=== PATIENT | male | born 1950 | race Caucasian/White ===

== ENCOUNTER 2019-09-18 13:05 | Outpatient (CLI) | payer MEDICARE, MEDICAID, SELFPAY | END 2019-09-18 13:06 | disposition home or self-care (01) | LOC: WOUND 13:07 | PROVIDERS: Family Provider Internal Medicine; PCP Internal Medicine; Visit Provider Nurse Practitioner Family | DX: I96 Gangrene, not elsewhere classified (principal); L89.212 Pressure ulcer of right hip, stage 2 | CPT/HCPCS: G0463 ==

== ENCOUNTER 2019-09-25 10:43 | Outpatient (CLI) | payer MEDICARE, MEDICAID, SELFPAY | END 2019-09-25 10:44 | disposition home or self-care (01) | LOC: WOUND 10:44 | PROVIDERS: Family Provider Internal Medicine; PCP Internal Medicine; Visit Provider Nurse Practitioner Family | DX: Z09 Encounter for follow-up examination after completed treatment for conditions other than malignant neoplasm (principal) | CPT/HCPCS: 99212 ==

== ENCOUNTER → 2019-10-10 14:50 | Outpatient (BNVA) | payer MEDICARE, MEDICAID, SELFPAY | PROVIDERS: Family Provider Internal Medicine; PCP Internal Medicine; Visit Provider Specialist | DX: F31.9 Bipolar disorder, unspecified (principal) | CPT/HCPCS: 99213 ==

== ENCOUNTER → 2020-07-24 11:30 | Outpatient (BNVA) | payer MEDICARE, MEDICAID, SELFPAY | PROVIDERS: Family Provider Internal Medicine; PCP Internal Medicine; Visit Provider Specialist | DX: F31.9 Bipolar disorder, unspecified (principal); F03.90 Unspecified dementia, unspecified severity, without behavioral disturbance, psychotic disturbance, mood disturbance, and anxiety; R26.81 Unsteadiness on feet; F17.210 Nicotine dependence, cigarettes, uncomplicated | CPT/HCPCS: 99214 ==

== ENCOUNTER → 2021-01-28 08:51 | Outpatient (BNVA) | payer MEDICARE, MEDICAID, SELFPAY | PROVIDERS: Family Provider Internal Medicine; PCP Internal Medicine; Visit Provider Specialist | DX: G31.83 Neurocognitive disorder with Lewy bodies (principal); F02.80 Dementia in other diseases classified elsewhere, unspecified severity, without behavioral disturbance, psychotic disturbance, mood disturbance, and anxiety; F31.30 Bipolar disorder, current episode depressed, mild or moderate severity, unspecified; J44.9 Chronic obstructive pulmonary disease, unspecified; F17.200 Nicotine dependence, unspecified, uncomplicated | CPT/HCPCS: 99214 ==

== ENCOUNTER → 2021-04-22 09:27 | Outpatient (BNVA) | payer MEDICARE, MEDICAID, SELFPAY | PROVIDERS: Family Provider Internal Medicine; PCP Internal Medicine; Visit Provider Specialist | DX: G31.83 Neurocognitive disorder with Lewy bodies (principal); F02.80 Dementia in other diseases classified elsewhere, unspecified severity, without behavioral disturbance, psychotic disturbance, mood disturbance, and anxiety; F31.30 Bipolar disorder, current episode depressed, mild or moderate severity, unspecified; F25.9 Schizoaffective disorder, unspecified; J44.9 Chronic obstructive pulmonary disease, unspecified; F17.200 Nicotine dependence, unspecified, uncomplicated | CPT/HCPCS: 99214 ==

== ENCOUNTER → 2021-07-22 10:27 | Outpatient (BNVA) | payer MEDICARE, MEDICAID, SELFPAY | PROVIDERS: Family Provider Internal Medicine; PCP Internal Medicine; Visit Provider Specialist | DX: G31.83 Neurocognitive disorder with Lewy bodies (principal); F02.80 Dementia in other diseases classified elsewhere, unspecified severity, without behavioral disturbance, psychotic disturbance, mood disturbance, and anxiety; J44.9 Chronic obstructive pulmonary disease, unspecified; F31.30 Bipolar disorder, current episode depressed, mild or moderate severity, unspecified; F17.200 Nicotine dependence, unspecified, uncomplicated | CPT/HCPCS: 99213; 99214 ==

== ENCOUNTER → 2021-10-28 13:07 | Outpatient (BNVA) | payer MEDICARE, MEDICAID, SELFPAY | PROVIDERS: Family Provider Internal Medicine; PCP Internal Medicine; Visit Provider Specialist | DX: G31.83 Neurocognitive disorder with Lewy bodies (principal); F02.80 Dementia in other diseases classified elsewhere, unspecified severity, without behavioral disturbance, psychotic disturbance, mood disturbance, and anxiety; F31.30 Bipolar disorder, current episode depressed, mild or moderate severity, unspecified; F25.9 Schizoaffective disorder, unspecified | CPT/HCPCS: 99213; 99214 ==

== ENCOUNTER 2022-04-16 12:21 | Outpatient (CLI) | payer MEDICARE, MEDICAID, SELFPAY ==
--- NOTE | 2022-04-16 12:30 | CT_ITS ---
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 TECHNIQUE: Axial imaging performed from the apices to 1 cm below the costophrenic angles. Coronal and sagittal reformats are submitted with axial MIP series. All CT scans at [facility] use at least one of these dose optimization techniques: automated exposure control; mA and/or kV adjustment per patient size (includes targeted exams where dose is matched to clinical indication); or iterativ e reconstruction. DLP: 78.99 mGy.cm DIvol: Mean CTDIvol: 1.60 (mGy) COMPARISON: None available. Diagnostic quality: Limited. Lung Nodules: Severe centrilobular emphysema. There are patchy nodular opacifications throughout the RIGHT upper and RIGHT lower lobe. Tubular areas of consolidation in the RIGHT lower lobe probably rep resenting bronchitis and secretions in the bronchi. 4 mm pleural-based nodule LEFT upper lobe. Heart: Normal size heart. Scattered coronary artery calcification. Other findings: Stomach is intrathoracic. Splenic flexure also extends above the diaphragm. CT/CT lung screening [id number] IMPRESSION: Limited quality evaluation due to severe chronic emphysema and kyphosis. LUNG-RADS: 4AS-Probably Suspicious with Significant Findings FOLLOW UP: Chest CT with or without contrast OTHER FINDINGS (S MODIFIER): Intrathoracic stomach. Splenic flexure is intratho racic also. Recommend short-term follow-up chest CT with IV contrast.
== END 2022-04-16 12:22 | disposition home or self-care (01) ==
LOC: RAD 12:23
PROVIDERS: Visit Provider Family Medicine
DX: Z12.2 Encounter for screening for malignant neoplasm of respiratory organs (principal); F17.218 Nicotine dependence, cigarettes, with other nicotine-induced disorders
CPT/HCPCS: 71271

== ENCOUNTER → 2022-04-29 13:20 | Outpatient (BNVA) | payer MEDICARE, MEDICAID, SELFPAY | PROVIDERS: PCP Family Medicine; Visit Provider Specialist | DX: F31.31 Bipolar disorder, current episode depressed, mild (principal); G31.83 Neurocognitive disorder with Lewy bodies; F02.B18 Dementia in other diseases classified elsewhere, moderate, with other behavioral disturbance; J41.0 Simple chronic bronchitis | CPT/HCPCS: 99213 ==

== ENCOUNTER 2022-05-27 15:24 | Outpatient (CLI) | payer MEDICARE, MEDICAID, SELFPAY ==
--- NOTE | 2022-05-27 15:30 | CT_ITS ---
WS: [id number] CT CHEST WITH INTRAVENOUS CONTRAST HISTORY: Pulmonary nodule on Lung screening. TECHNIQUE: Contiguous 5 mm axial imaging performed on the thorax. Coronal and sagittal reformats are submitted. All CT scans at [facility] use at least one of these dose optimization techniques: automated exposure control; mA and/or kV adjustment per patient size (includes targeted exams where dose is matched to clinical indication); or iterative reconstruction. CONTRAST: Omnipaque 350; 95 mL IV. DLP: 224.14 mGy.cm COMPARISON: CT lung screening 04/16/2022 Lungs and central airway: Marked centrilobular emphysema. Pleural-based 5 mm nodule LEFT upper lobe i s unchanged. Patchy consolidations at the RIGHT lung base is similar to the prior study. Tubular in a ppearance and probably bronchial thickening with internal secretions and developing bronchiectasis. N o progression. There are a few mild scattered linear opacifications in the RIGHT upper and lower lobe . Pleura: Normal. No pleural effusion. Heart and pericardium: Normal size heart. Mediastinum and marshall: No mediastinal or hilar adenopathy. Vessels: Mild atherosclerosis aorta. Chest wall and lower neck: No soft tissue masses. Upper abdomen: Large portion of the stomach is intrathoracic. Osseous structures: No destructive process. CT/CT chest w con* [id number] IMPRESSION: 1. Severe emphysema. 2. No significant change in appearance of the lungs since 04/16/2022. No increa se in size of the pleural-based nodule LEFT upper lobe. Recommend serial chest CT follow-up evaluation. 3. Intrathoracic stomach.
[2022-05-27 16:17] LABS: Blood Urea Nitrogen 17 mg/dL (8-23)
[2022-05-27] MEDS: iohexol 350 mg/mL 500 mL Btl (per mL) IV (16:18)
== END 2022-05-27 15:25 | disposition home or self-care (01) ==
PROVIDERS: PCP Family Medicine; Visit Provider Family Medicine
DX: R91.1 Solitary pulmonary nodule (principal)
CPT/HCPCS: 71260; 82565; 84520; Q9967

== ENCOUNTER → 2022-07-15 09:22 | Outpatient (BNVA) | payer MEDICARE, MEDICAID, SELFPAY | PROVIDERS: PCP Family Medicine; Visit Provider Internal Medicine Pulmonary Disease | DX: F17.210 Nicotine dependence, cigarettes, uncomplicated (principal); R91.1 Solitary pulmonary nodule; G31.83 Neurocognitive disorder with Lewy bodies; F02.B18 Dementia in other diseases classified elsewhere, moderate, with other behavioral disturbance; J41.0 Simple chronic bronchitis; Z71.6 Tobacco abuse counseling; K44.9 Diaphragmatic hernia without obstruction or gangrene | CPT/HCPCS: 99204 ==

== ENCOUNTER → 2022-07-29 10:16 | Outpatient (BNVA) | payer MEDICARE, MEDICAID, SELFPAY | PROVIDERS: PCP Family Medicine; Visit Provider Specialist | DX: G31.83 Neurocognitive disorder with Lewy bodies (principal); G45.9 Transient cerebral ischemic attack, unspecified; F02.B18 Dementia in other diseases classified elsewhere, moderate, with other behavioral disturbance; J41.0 Simple chronic bronchitis; F31.31 Bipolar disorder, current episode depressed, mild | CPT/HCPCS: 99215 ==

== ENCOUNTER 2022-07-29 11:58 | Outpatient (CLI) | payer MEDICARE, MEDICAID, SELFPAY ==
--- NOTE | 2022-07-29 12:00 | CT_ITS ---
WS: [id number] CT HEAD TECHNIQUE: Noncontrast CT of the head obtained from the skullbase to the vertex. CLINICAL INFORMATION: R29.90 - Unspecified symptoms and signs involving the ner... COMPARISON: CT head February 17, 2009 DLP: 1164.[address] scans at [facility] use at least one of these dose optimization techniques: automated e xposure control; mA and/or kV adjustment per patient size (includes targeted exams where dose is matc hed to clinical indication); or iterative reconstruction. FINDINGS: No evidence of intracranial hemorrhage or mass effect. Ventricular system and basal cisterns are joyce nt. Moderate small vessel changes with moderate parenchymal volume loss worse in the frontal lobes. N o extra-axial fluid collections. No evidence of mass or mass effect. Tiny chronic lacunar infarct LEF T basal ganglia. Vascular calcification. Paranasal sinuses and mastoid air cells are well aerated. .Normal visualized soft tissues. CT/CT head wo con* [id number] IMPRESSION: 1. No evidence of intracranial hemorrhage or mass effect. 2. Moderate small vessel changes. Moderate parenchymal volume loss worse in th e frontal lobes. This is progressed since 2008. 3. Vascular calcification. 4. No acute intracranial findings.
[2022-07-29 13:41] LABS: Basophils # 0.1 10^3/uL (0.0-0.1); Eosinophils % 0.2 %; Hematocrit 41.4 % (42.0-52.0); Hemoglobin 13.3 g/dL (11.7-16.6); Lymphocytes # 1.4 10^3/uL (0.8-4.8); Lymphocytes % 22.3 %; Mean Corpuscular HGB Conc 32.1 g/dL (30.0-36.0); Mean Corpuscular Volume 99.5 fl (80-94); Mean Platelet Volume 8.6 fL (7.4-10.4); Monocytes # 0.5 10^3/uL (0.2-0.9); Neutrophils # 4.26 10^3/uL (1.8-7.7); Neutrophils % 68.3 %; Nucleated Red Blood Cells % 0 %; Platelet Count 230 10^3/cmm (130-400); Red Blood Count 4.16 10^6/uL (4.1-5.3); Red Cell Distribution Width 13.1 % (12.1-15.1); White Blood Count 6.2 10^3/uL (4.0-10.0)
[2022-07-29 13:49] LABS: Lithium 0.9 mmol/L (0.6-1.2)
[2022-07-29 14:02] LABS: Alanine Aminotransferase 13 U/L (0-41); Albumin Level 3.9 g/dL (3.5-5.2); Alkaline Phosphatase 98 U/L (40-130); Anion Gap 10.6 (5-19); Aspartate Amino Transferase 17 U/L (0-40); Blood Urea Nitrogen 20 mg/dL (8-23); Carbon Dioxide 27 mmol/L (22-29); Chloride 107 mmol/L (98-107); Globulin 2.6 g/dL (1.3-4.6); Glucose 72 mg/dL (65-115); Osmolality Calculated 291 mOsm/kg (285-295); Potassium 4.6 mmol/L (3.5-5.1); Sodium 140 mmol/L (136-145); Thyroid Stimulating Hormone 3.11 uIU/mL (0.27-4.20); Total Bilirubin 0.4 mg/dL (0.15-1.2); Total Protein 6.5 g/dL (6.6-8.7)
== END 2022-07-29 11:59 | disposition home or self-care (01) ==
LOC: RAD 11:58
PROVIDERS: PCP Family Medicine; Visit Provider Specialist
DX: R29.90 Unspecified symptoms and signs involving the nervous system (principal); R19.7 Diarrhea, unspecified; G31.83 Neurocognitive disorder with Lewy bodies; F02.80 Dementia in other diseases classified elsewhere, unspecified severity, without behavioral disturbance, psychotic disturbance, mood disturbance, and anxiety; R20.0 Anesthesia of skin; T14.8XXA Other injury of unspecified body region, initial encounter; I63.9 Cerebral infarction, unspecified; G45.9 Transient cerebral ischemic attack, unspecified; F02.B18 Dementia in other diseases classified elsewhere, moderate, with other behavioral disturbance; J41.0 Simple chronic bronchitis; F31.31 Bipolar disorder, current episode depressed, mild; X58.XXXA Exposure to other specified factors, initial encounter
CPT/HCPCS: 36415; 70450; 80053; 80178; 84443; 85025; 99215

== ENCOUNTER 2022-08-05 07:22 | Outpatient (CLI) | payer MEDICARE, MEDICAID, SELFPAY | END 2022-08-05 07:23 | disposition home or self-care (01) | LOC: RT 07:25 | PROVIDERS: PCP Family Medicine; Visit Provider Internal Medicine Pulmonary Disease | DX: J44.9 Chronic obstructive pulmonary disease, unspecified (principal) | CPT/HCPCS: 94618; 99204 ==

== ENCOUNTER → 2022-10-29 10:51 | Outpatient (BNVA) | payer MEDICARE, MEDICAID, SELFPAY | PROVIDERS: PCP Family Medicine; Visit Provider Internal Medicine Pulmonary Disease | DX: J41.0 Simple chronic bronchitis (principal); R91.1 Solitary pulmonary nodule; G31.83 Neurocognitive disorder with Lewy bodies; F02.B18 Dementia in other diseases classified elsewhere, moderate, with other behavioral disturbance; Z71.6 Tobacco abuse counseling; K44.9 Diaphragmatic hernia without obstruction or gangrene; F17.210 Nicotine dependence, cigarettes, uncomplicated | CPT/HCPCS: 99214 ==

== ENCOUNTER 2022-11-12 07:28 | Outpatient (CLI) | payer MEDICARE, MEDICAID, SELFPAY ==
--- NOTE | 2022-11-12 07:45 | CT_ITS ---
WS: [id number] CT chest wo con [id number] HISTORY: nodule f/u TECHNIQUE: Axial imaging performed through the thorax. Coronal and sagittal reformats are submitted. All CT scans at [facility] use at least one of these dose optimization techniques: automated exposure control; mA and/or kV adjustment per patient size (includes targeted exams where dose is mat ched to clinical indication); or iterative reconstruction. CONTRAST: None DLP: 192.65 mGy.cm COMPARISON: 04/16/2022, 05/27/2022 Lungs and central airway: Chronic emphysema. No interval change pleural-based nodule anterior LEFT up per lobe. Mild hazy attenuation in the lower lung field in part exacerbated by breathing motion artif act. Irregular shaped opacification at the RIGHT lung base along the diaphragmatic surface has slight ly improved since the study of 04/16/2022. Residual nodule measures 12 mm. Pleura: Normal. No pleural effusion. Heart and pericardium: Normal size heart. Mediastinum and marshall: No adenopathy. Vessels: Mild atherosclerosis aorta. Normal size pulmonary artery. Chest wall and lower neck: No soft tissue masses. Upper abdomen: There is a large intrathoracic stomach. Also noted on the prior study. High riding spl een. Portion of the splenic fracture is in the lower thorax. Osseous structures: No destructive process. CT/CT chest wo con [id number] IMPRESSION: 1. No interval change in the 5 mm pleural-based nodule LEFT upper lobe since 1 06/17/2021. 2. Subtle opacification at the RIGHT lung base has slightly improved since 04/16/2022. Consider additional [address] follow-up. 3. Intrathoracic stomach and intrathoracic splenic flexure.
== END 2022-11-12 07:29 | disposition home or self-care (01) ==
LOC: RAD 07:29
PROVIDERS: PCP Family Medicine; Visit Provider Internal Medicine Pulmonary Disease
DX: R91.1 Solitary pulmonary nodule (principal); J44.9 Chronic obstructive pulmonary disease, unspecified
CPT/HCPCS: 71250

== ENCOUNTER → 2023-01-05 14:54 | Outpatient (BNVA) | payer MEDICARE, MEDICAID, SELFPAY | PROVIDERS: PCP Family Medicine; Visit Provider Specialist | DX: R41.3 Other amnesia (principal); G31.83 Neurocognitive disorder with Lewy bodies; F02.B18 Dementia in other diseases classified elsewhere, moderate, with other behavioral disturbance; R26.9 Unspecified abnormalities of gait and mobility | CPT/HCPCS: 99214 ==

== ENCOUNTER → 2023-04-23 09:01 | Outpatient (BNVA) | payer MEDICARE, MEDICAID, SELFPAY | PROVIDERS: PCP Family Medicine; Visit Provider Internal Medicine Pulmonary Disease | DX: R91.1 Solitary pulmonary nodule (principal); F02.B18 Dementia in other diseases classified elsewhere, moderate, with other behavioral disturbance; G31.83 Neurocognitive disorder with Lewy bodies; J41.0 Simple chronic bronchitis; Z71.6 Tobacco abuse counseling; K44.9 Diaphragmatic hernia without obstruction or gangrene; F17.210 Nicotine dependence, cigarettes, uncomplicated | CPT/HCPCS: 99214 ==

== ENCOUNTER 2023-05-20 12:58 | Outpatient (CLI) | payer MEDICARE, MEDICAID, SELFPAY ==
--- NOTE | 2023-05-20 13:30 | CT_ITS ---
WS: [id number] CT CHEST TECHNIQUE: Noncontrast CT of the chest with coronal and sagittal reformatted images. CLINICAL INFORMATION: follow up on rigth lower lobe opacity COMPARISON: CT 11/12/2022 DLP: 72.[address] scans at [facility] use at least one of these dose optimization techniques: automated e xposure control; mA and/or kV adjustment per patient size (includes targeted exams where dose is matc hed to clinical indication); or iterative reconstruction. FINDINGS: Stable 5 mm pleural-based nodule LEFT upper lobe. Stable irregular nodule RIGHT lower lobe measuring 13 mm appears stable. Bibasilar atelectasis. Calcified granuloma LEFT lower lobe. Mild thor acic curve. Mild thoracic kyphosis. Moderate to advanced chronic emphysematous changes. Bibasilar atelectasis. Intrathoracic stomach. Aor tic calcification. Coronary calcification. No mediastinal or hilar lymphadenopathy. IMPRESSION: 1. No significant change compared to previous. 2. Stable 5 mm pleural-based nodule LEFT upper lobe. This is unchanged since 04/16/2022. 3. RIGHT lower lobe irregular nodule measuring 13 mm is stable. Recommend 12-month follow-up. 4. Intrathoracic stomach is stable
== END 2023-05-20 12:59 | disposition home or self-care (01) ==
LOC: RAD 12:59
PROVIDERS: PCP Family Medicine; Visit Provider Internal Medicine Pulmonary Disease
DX: R91.8 Other nonspecific abnormal finding of lung field (principal)
CPT/HCPCS: 71250

== ENCOUNTER → 2023-07-27 09:53 | Outpatient (BNVA) | payer MEDICARE, MEDICAID, SELFPAY | PROVIDERS: PCP Family Medicine; Referring Provider Specialist; Visit Provider Specialist | DX: R29.90 Unspecified symptoms and signs involving the nervous system (principal); G31.83 Neurocognitive disorder with Lewy bodies; F02.B18 Dementia in other diseases classified elsewhere, moderate, with other behavioral disturbance; F31.31 Bipolar disorder, current episode depressed, mild; R26.9 Unspecified abnormalities of gait and mobility | CPT/HCPCS: 99214 ==

== ENCOUNTER 2023-08-03 14:47 | Observation (INO) | payer MEDICARE, MEDICAID, SELFPAY ==
[2023-08-03 14:55] VITALS: BP 132/86; PULSE 79; RESP 16; TEMP 37.1; O2SAT 97; BMI 17.9
--- NOTE | 2023-08-03 15:03 | CTR_ITS ---
PROCEDURE INFORMATION: Exam: CT Head Without Contrast Exam date and time: 08/03/2023 3:18 PM Age: 73 years old Clinical indication: Altered mental status/memory loss; Additional info: AMS TECHNIQUE: Imaging protocol: Computed tomography of the head without contrast. Radiation optimization: All CT scans at this facility use at least one of these dose optimization techniques: automated exposure control; mA and/or kV adjustment per patient size (includes targeted exams where dose is matched to clinical indication); or iterative reconstruction. COMPARISON: CT head wo con* [id number] 07/29/2022 12:09 PM RADIATION DOSE METRICS: Total DLP (mGy-cm): 1395.58 FINDINGS: Brain: Sequela of mild chronic microvascular ischemic changes. Soto-white differentiation is otherwise maintained. No evidence of intra-axial or extra-axial hemorrhage. No mass effect or midline shift. Basilar cisterns are patent. Cerebral ventricles: No hydrocephalus. Paranasal sinuses: The visualized paranasal sinuses are well aerated. Mastoid air cells: The visualized mastoids and middle ears are clear. Bones/joints: The visualized calvarium and bony orbits are intact. Soft tissues: No gross soft tissue abnormality. CT/CT head wo con* [id number] IMPRESSION: 1. No acute intracranial abnormality.
--- NOTE | 2023-08-03 15:04 | XR_ITS ---
WS: [email or web address] Exam: XR chest 1V portable [id number] Date/Time of Exam: 08/03/2023 3:06 PM Reason For Exam: dyspnea/cough Comparison 11/16/2018. There is a mild interstitial infiltrate in the RIGHT lower lung zone. Developing pneumonia is not exc luded. Remaining lung leavitt are clear. Mild cardiac enlargement. Large hiatal hernia unchanged. The mediastinum is normal in contour. No pleural effusions or pneumothorax. Regional bony elements are in tact. Mild dextroscoliosis of the T-spine. IMPRESSION: 1. Mild interstitial infiltrate in the mid and lower RIGHT lung. Developing pneumonia is not excluded . 2. Mild cardiac enlargement unchanged. Stable appearing large hiatal hernia.
--- NOTE | 2023-08-03 15:20 | ED_ITS ---
HPI - Weakness 2 General: Chief complaint: Weakness Stated complaint: confusion, dizzy, Time Seen by Provider: 08/03/23 15:03 Source: patient and family Mode of arrival: ambulatory History of Present Illness: 73-year-old male presents to the emergen cy room from urgent care. Increasing weakness and confusion not at baseline. Patient is alert to time place and person. He denies chest pain or abdominal pain he is moderately dizzy. Report of gradually getting weaker some of this is thought to be secondary to his dementia. MD Complaint: generalized weakness Onset (ago): hour(s) Relieving factors: none Exacerbating factors: none Associated symptoms: Denies chest pain, chills, confusion, melena, decreased appetite, diaphoresis, dysuria, easy bruising, fever(s), headache(s), myalgias, nausea, rash, short of breath, syncope or vomiting Review of Systems 2 Const: Denies: fever(s), chills or diaphoresis Card: Denies: chest pain or syncope Resp: Reports: dyspnea and non-productive cough GI: Denies: abdominal pain, nausea, vomiting or melena : Denies: dysuria, urinary frequency or urinary urgency Musc: Denies: neck pain or back pain Skin/Breast: Denies: rash Neuro: Denies: headache(s) or confusion Aleks/Lymph: Denies: easy bruising PFSH ED 2 PFSH: Medical History Dementia COPD (chronic obstructive pulmonary disease) GERD (gastroesophageal reflux disease) Schizo affective schizophrenia Surgical History History of hip surgery Social History Smoking and tobacco/nicotine status: current every day tobacco/nicotine user cigarettes Packs smoked per day: 1 Years cigarettes smoked: 61 [ Other cigarette details: 10-12 cigarettes per day] Alcohol intake: former Physical Exam 2 Const: GENERAL APPEARANCE: cooperative and comfortable O RIENTATION/CONSCIOUSNESS: Yes awake, Yes oriented to person, Yes oriented to place and Yes oriented to time HENMT: COMMON NORMALS: normocephalic, atraumatic and hearing grossly normal bilaterally HEAD & SCALP: normocephalic and atraumatic Resp: COMMON NORMALS: normal respiratory effort, No retractions and No use of accessory muscles AUSCULTATION: rhonchi (Right base) and wheezes Cardio: COMMON NORMALS: regular rate, regular rhythm and No murmurs present (Cardio) RATE: regular rate RHYTHM: regular rhythm GI: COMMON NORMALS: Soft to palpation and No hepatosplenomegaly present A USCULTATION: Yes normoactive bowel sounds PALPATION: Yes Soft to palpation, No Tenderness to palpation present (GI), No Guarding due to palpation present (GI) and Yes No hepatosplenomegaly present Extremity: COMMON NORMALS: normal to inspection, capillary refill normal, no clubbing, cyanosis or edema, no calf tenderness and no pedal edema Neuro: SENSORIUM/ORIENTATION: Yes oriented to person, Yes oriented to place and Yes oriented to time Skin: COMMON NORMALS: no rashes or lesions noted GENERAL SKIN EXAM: no rashes or lesions noted Course 2 Vital Signs: Vital signs: Vital Signs Temperature 97.6 F 08/04/23 13:38 Pulse Rate 72 08/04/23 13:38 Respiratory Rate 17 08/04/23 13:38 Blood Pressure 113/69 08/04/23 13:38 Pulse Oximetry 92 08/04/23 13:38 Oxygen Delivery Me thod Room Air 08/04/23 08:00 MDM - Weakness Medical Decision Making Weakness mildly elevated CPK and developing right lower lobe pneumonia. Placed on observation discussed with hospitalist orders written Medical Records I reviewed the patient's medical records. Lab Data I reviewed the patient's lab results. 08/04/23 04:18 08/04/23 04:[address] 08/03/23 15:03 IMPRESSION: 1. No acute intracranial abnormality. Laboratory Results WBC 7.13 10^3/uL (3.29-11.43) 08/03/23 15:32 RBC 4.08 10^6/uL (3.85-5.65) 08/03/23 15:32 Hgb 13.40 g/dL (11.27-16.99) 08/03/23 15:32 Hct 41.2 % (37-53) 08/03/23 15:32 MCV 101.0 fl (82-101) 08/03/23 15:32 MCH 32.8 pg (27-33) 08/03/23 15:32 MCHC 32.5 g/dL (30-55) 08/03/23 15:32 RDW 13.1 % (12.1-15.1) 08/03/23 15:32 Plt Count 239 10^3/cmm (157-399) 08/03/23 15:32 MPV 8.5 fL (7.4-10.4) 08/03/23 15:32 Neut % (Auto) 76.0 % 08/03/23 15:32 Lymph % (Auto) 13.5 % 08/03/23 15:32 Bartholomew % (Auto) 9.3 % 08/03/23 15:32 Eos % (Auto) 0.3 % 08/03/23 15: Baso % (Auto) 0.6 % 08/03/23 15:32 Neut # (Auto) 5.43 10^3/uL (1.8-7.7) 08/03/23 15:32 Lymph # (Auto) 1.0 10^3/uL (0.8-4.8) 08/03/23 15:32 Bartholomew # (Auto) 0.7 10^3/uL (0.2-0.9) 08/03/23 15:32 Eos # (Auto) 0.0 10^3/uL (0.0-0.8) 08/03/23 15: Baso # (Auto) 0.0 10^3/uL (0.0-0.1) 08/03/23 15:32 Nucleated RBC % (auto) 0 % 08/03/23 15: Nucleated RBCs # 0.0 /100WBC 08/03/23 15:32 Sodium 140 mmol/L (136-145) 08/03/23 15:32 Potassium 3.8 mmol/L (3.5-5.1) 08/03/23 15:32 Chloride 106 mmol/L (98-107) 08/03/23 15:32 Carbon Dioxide 22 mmol/L (22-29) 08/03/23 15:32 Anion Gap 15.8 (5-19) 08/03/23 15:32 BUN 20 mg/dL (8-23) 08/03/23 15:32 Creatinine 1.1 mg/dL (0.7-1.2) 08/03/23 15:32 GFR Calculation Not Reportable 08/03/23 15:32 Glucose 82 mg/dL (65-115) 08/03/23 15:32 Calculated Osmolality 292 mOsm/kg (285-295) 08/03/23 15:32 Lactic Acid 1.3 mmol/L (0.5-2.2) 08/03/23 15:32 Calcium 9.0 mg/dL (8.5-10.5) 08/03/23 15:32 Total Bilirubin 0.3 mg/dL (0.15-1.2) 08/03/23 15:32 AST 27 U/L (0-40) 08/03/23 15:32 ALT 19 U/L (0-41) 08/03/23 15:32 Alkaline Phosphatase 109 U/L (40-130) 08/03/23 15:32 Creatine Kinase 739 U/L (39-308) H* 08/03/23 15:32 Troponin T Baseline 34 ng/L (0-15) H 08/03/23 15:32 Troponin T 120 Minute 36.94 ng/L (0-15) H 08/03/23 17:25 Delta Troponin T 2.94 ABS# (0-10) 08/03/23 17:25 Total Protein 6.8 g/dL (6.6-8.7) 08/03/23 15:32 Albumin 4.0 g/dL (3.5-5.2) 08/03/23 15:32 Globulin 2.8 g/dL (1.3-4.6) 08/03/23 15:32 Coronavirus 229E (PCR) Not detected (NOT DETECT) 08/03/23 18:13 Influenza Type A Ag negative (Negative) 08/03/23 18:13 Influenza Type B Ag negative (Negative) 08/03/23 18:13 SARS-CoV-2 (PCR) Not detected (NOT DETECT) 08/03/23 18:13 All radiology interpretation(s) finalized by discharge Discharge Plan Discharge Patient Disposition: Admitted As Inpatient Admit Provider: Villa Moreno Clinical Impression: Rhabdomyolysis, Diarrhea, Generalized weakness, Pneumonia COPD (chronic obstructive pulmonary disease) Qualifiers: COPD type: chronic bronchitis Chronic bronchitis type: simple Qualified Code(s): J41.0 - Simple chronic bronchitis Condition: Stable Discharge Diet: Usual diet Discharge Activity: Increase activity as tolerated Coding Level of Care Code ED Pulmonology Technician for Leodan Taveras
--- NOTE | 2023-08-03 15:34 | ECG_ITS ---
[facility] Test Date: 2023-08-03 Pat Name: Erlin Yadav Department: Room: Gender: Male Ekg Monitor: : 1950 Requested By: Aamir Arzola Order Number: [id number] Reading MD: Judy Mckenzie M.D. Measurements Intervals [place] Rate: 67 P: 40 TX: 196 QRS: 14 QRSD: 100 T: 75 QT: 413 QTc: 438 Interpretive Statements SINUS RHYTHM WITH OCCASIONAL VENTRICULAR PREMATURE COMPLEXES WITH OCCASIONAL SUPRAVENTRICULAR PREMATURE COMPLEXES NONSPECIFIC T-WAVE ABNORMALITY Compared to ECG 11/16/2018 17:20:31 Ventricular premature complex(es) now present First degree AV block no longer present T-wave abnormality still present Electronically Signed On 08-04-2023 23:46:10 CDT by Judy Mckenzie M.D. [id number]
[2023-08-03 15:48] LABS: Basophils % 0.6 %; Eosinophils % 0.3 %; Hematocrit 41.2 % (37-53); Lymphocytes % 13.5 %; Mean Corpuscular HGB Conc 32.5 g/dL (30-55); Mean Corpuscular Hemoglobin 32.8 pg (27-33); Mean Platelet Volume 8.5 fL (7.4-10.4); Monocytes # 0.7 10^3/uL (0.2-0.9); Monocytes % 9.3 %; Neutrophils # 5.43 10^3/uL (1.8-7.7); Nucleated Red Blood Cells % 0 %; Platelet Count 239 10^3/cmm (157-399); Red Blood Count 4.08 10^6/uL (3.85-5.65); Red Cell Distribution Width 13.1 % (12.1-15.1); White Blood Count 7.13 10^3/uL (3.29-11.43)
[2023-08-03 16:06] LABS: Lactic Sepsis W/Reflex 1.3 mmol/L (0.5-2.2)
[2023-08-03 16:07] LABS: Alanine Aminotransferase 19 U/L (0-41); Alkaline Phosphatase 109 U/L (40-130); Anion Gap 15.8 (5-19); Aspartate Amino Transferase 27 U/L (0-40); Blood Urea Nitrogen 20 mg/dL (8-23); Carbon Dioxide 22 mmol/L (22-29); Chloride 106 mmol/L (98-107); Creatinine Clr Calc Pharmacy 50.6286; Globulin 2.8 g/dL (1.3-4.6); Glucose 82 mg/dL (65-115); Osmolality Calculated 292 mOsm/kg (285-295); Potassium 3.8 mmol/L (3.5-5.1); Sodium 140 mmol/L (136-145); Total Bilirubin 0.3 mg/dL (0.15-1.2); Total Protein 6.8 g/dL (6.6-8.7)
[2023-08-03 16:11] LABS: Troponin(5th) Baseline 34 ng/L (0-15)
[2023-08-03 16:19] LABS: Creatine Phosphokinase 739 U/L (39-308)
[2023-08-03 16:21] VITALS: BP 109/58; PULSE 72; RESP 17; O2SAT 92
--- NOTE | 2023-08-03 17:23 | ECG_ITS ---
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 Measurements Intervals [place] Rate: 70 P: 64 IL: 234 QRS: 20 QRSD: 105 T: 74 QT: 405 QTc: 439 Interpretive Statements SINUS RHYTHM WITH FIRST DEGREE AV BLOCK WITH OCCASIONAL VENTRICULAR PREMATURE COMPLEXES NONSPECIFIC T-WAVE ABNORMALITY Compared to ECG 08/03/2023 15:34:12 First degree AV block now present T-wave abnormality still present Electronically Signed On 08-05-2023 0:01:27 CDT by Judy Mckenzie M.D. [id number]
[2023-08-03 17:59] LABS: Troponin 5 2HR 36.94 ng/L (0-15); Troponin 5 2HR Delta 2.94 ABS# (0-10)
--- NOTE | 2023-08-03 18:02 | P.HP_ITS ---
Providers/Chief Complaint 2 Primary Care Provider: Alexander Perez DO Chief Complaint: confusion, dizzy, History of Present Illness Pleasant 73-year-old gentleman with dementia, care facility resident, usually oriented to place, recognizing some people, not oriented to date, has overall been gradually growing weaker, possibly secondary to dementia, but has been weaker still recently. Today had a witnessed fall, did not spend much time down. Has had diarrhea. In ER he is afebrile, without leukocytosis, unremarkable chemistry apart from CK elevation 739. He reportedly has been eating and drinking without change in appetite. No recent changes in his medications. Baseline troponin with mild elevation without increase at 2 hours. No intracranial abnormality on CT head. Chest x-ray with mild interstitial infiltrates in the mid and lower right lung possible developing pneumonia. Mild cardiac enlargement. Stable appearing large hiatal hernia. He himself is unable to provide history, but on review of systems denies any complaints. Review of Systems 2 Narrative: Weaker than usual, functional decline compared to usual. Const: Denies: fever(s), chills, body aches or malaise ENMT: Denies: throat pain Card: Denies: chest pain, edema, pre-syncope or dyspnea on exertion Resp: Denies: dyspnea, productive cough, change in phlegm color or hemoptysis GI: Reports: diarrhea; Denies: abdominal pain, nausea, vomiting, constipation, hematochezia or melena : Denies: flank pain, difficulty urinating, urinary frequency or hematuria Musc: Denies: back pain, joint swelling or joint redness Skin/Breast: Denies: rash or new lesions Neuro: Reports: other (Fall); Denies: headache(s) or confusion Medications/Allergies Home Medications Medication Instructions Recorded Confirmed Last Taken Type Kaopectate Liquid Vanilla 8oz See Rx Instructions .Route 05/26/22 08/03/23 Unknown Rx .COMPLEX #240 ea ketoconazole 2 % shampoo See Rx Instructions .Route 06/10/22 08/03/23 08/02/23 Rx .COMPLEX #120 mL Hospital bed #1 ea 02/06/23 08/03/23 Unknown Rx wheelchair #1 ea 02/06/23 08/03/23 Unknown Rx Cerave Moisturizing Cream #1 ea 06/29/23 08/03/23 Unknown Rx lorazepam 1 mg tablet 1 mg PO Q12H PRN agitation #30 tabs 07/26/23 08/03/23 Unknown Rx Cerave Moisturizing Cream 16oz See Rx Instructions .Route 08/03/23 08/03/23 08/03/23 History .COMPLEX PRN Dry Skin acetaminophen 500 mg tablet 1,000 mg PO Q4H PRN PAIN OR FEVER 08/03/23 08/03/23 Unknown History albuterol sulfate 90 mcg/actuation 1 puff inhalation Q4H PRN 08/03/23 08/03/23 Unknown History aerosol inhaler (Ventolin HFA) Shortness Of Breath alprazolam 1 mg tablet See Rx Instructions .Route .COMPLEX 08/03/23 08/03/23 08/03/23 History aluminum-mag hydroxide-simethicone 30 ml PO Q4H PRN Indigestion 08/03/23 08/03/23 Unknown History 200 mg-200 mg-20 mg/5 mL oral susp docusate sodium 100 mg capsule 100 mg PO BID 08/03/23 08/03/23 08/03/23 History galantamine 4 mg tablet 4 mg PO BID 08/03/23 08/03/23 08/03/23 History ibuprofen 800 mg tablet 800 mg PO Q8H PRN PAIN OR ELEVATED 08/03/23 08/03/23 Unknown History TEMP lithium carbonate 300 mg capsule 300 mg PO BID 08/03/23 08/03/23 08/03/23 History loratadine 10 mg tablet 10 mg PO DAILY PRN ALLERGIES 08/03/23 08/03/23 Unknown History multivitamin with folic acid 400 1 tab PO QAM 08/03/23 08/03/23 08/03/23 History mcg tablet (Daily-Carlos (with folic acid)) olanzapine 10 mg tablet 10 mg PO BEDTIME 08/03/23 08/03/23 08/02/23 History olanzapine 2.5 mg tablet 2.5 mg PO QAM 08/03/23 08/03/23 08/03/23 History omeprazole 20 mg capsule,delayed 20 mg PO BID 08/03/23 08/03/23 08/03/23 History release quetiapine 400 mg tablet 400 mg PO BID 08/03/23 08/03/23 08/03/23 History tamsulosin 0.4 mg capsule 0.4 mg PO QPM 08/03/23 08/03/23 08/02/23 History trazodone 100 mg tablet 100 mg PO BEDTIME 08/03/23 08/03/23 08/02/23 History triamcinolone acetonide 0.025 % 1 applic topical QAM 08/03/23 08/03/23 08/03/23 History topical cream umeclidinium 62.5 mcg/actuation 1 inh inhalation QAM 08/03/23 08/03/23 08/03/23 History blister powder for inhalation (Incruse Ellipta) venlafaxine 150 mg 150 mg PO QAM 08/03/23 08/03/23 08/03/23 History capsule,extended release 24 hr venlafaxine 75 mg capsule,extended 75 mg PO QAM 08/03/23 08/03/23 08/03/23 History release 24 hr Allergies Allergy/AdvReac Type Severity Reaction Status Date / Time azithromycin Allergy Unknown Unknown Verified 08/03/23 13:40 PFSH Acute 2 PFSH: Medical History (Updated 08/03/23 @ 18:43 by Villa Moreno MD) Dementia COPD (chronic obstructive pulmonary disease) GERD (gastroesophageal reflux disease) Schizo affective schizophrenia Surgical History History of hip surgery Social History Smoking and tobacco/nicotine status: current every day tobacco/nicotine user cigarettes Packs smoked per day: 1 Years cigarettes smoked: 61 [ Other cigarette details: 10-12 cigarettes per day] Alcohol intake: former Vitals/I&O/Wt Last Vital Signs Temp 98.7 F 08/03/23 14:55 Pulse 72 08/03/23 16:21 Resp 17 08/03/23 16:21 BP 109/58 08/03/23 16:21 Pulse Ox 92 08/03/23 16:21 O2 Del Method Room Air 08/03/23 14:55 Weight last 48 hrs Weight 61.689 kg Physical Exam 2 Narrative: Accompanied by caregiver Const: COMMON NORMALS: alert; negative for patient oriented x3 GENERAL APPEARANCE: cooperative and frail appearing ORIENTATION/CONSCIOUSNESS: Yes awake, Yes oriented to person and Yes oriented to place; not oriented to time HENMT: COMMON NORMALS: oropharynx normal Neck/C-Spine: COMMON NORMALS: no JVD Resp: AUSCULTATION: rhonchi right lower Cardio: COMMON NORMALS: no JVD, regular rhythm, S1 normal heart sound present, S2 normal heart sound present and No murmurs present (Cardio) RHYTHM: regular rhythm HEART SOUNDS: S1 normal heart sound present and S2 normal heart sound present GI: COMMON NORMALS: Normal to inspection, nondistended, normoactive bowel sounds present, Soft to palpation and non-tender PALPATION: Yes Soft to palpation Extremity: COMMON NORMALS: no joint enlargement and no pedal edema Neuro: COMMON NORMALS: patient oriented x3 and moves all extremities S ENSORIUM/ORIENTATION: Yes alert OTHER: No rigidity Skin: COMMON NORMALS: no rashes or lesions noted GENERAL SKIN EXAM: no rashes or lesions noted Data 08/03/23 15:32 08/03/23 15:32 Micro: Microbiology 08/03/23 17:30 Blood Culture - Preliminary Blood SPECIMEN COLLECTED 08/03/23 17:25 Blood Culture - Preliminary Blood SPECIMEN COLLECTED A&P Assessment and plan (1) Generalized weakness: Generally weak, some worsening of ADLs, also noted having some rhabdomyolysis, CK 739. Diarrhea. Had a fall earlier today. Reviewed vitals, CBC, CMP, CK, troponin baseline and 2 hours, head CT, chest x- ray. EKG on my interpretation with first-degree AV block, PVC, no signs of [place], some flattening of T waves in 1, aVL, laterally, pending cardiology read. Reviewed ER note, discussed with ER provider. Complete troponin EKG series. Check COVID PCR panel. Stool studies for diarrhea. Check TSH. Follow-up CK level. Some right lower lobe infiltrate, possibility of early pneumonia. Does have some rhonchi in the right lower lobe. Question of possible aspiration, although caregiver denies witnessing aspiration, although he does have to have a small spoon, soft and bite-size meals. Will treat for possible aspiration pneumonia, received Levaquin, continue. Assess with MBS. Aspiration precautions. Fall precautions. Up with assist. (2) Rhabdomyolysis: CK739, monitor blood myelitis. Reviewed medications, discussed with pharmacist. No obvious medication that should be causing rhabdomyolysis. No signs of NMS. Will follow-up CK level. Could be secondary to his weakness/controlled fall earlier today. Although could be secondary to some dehydration and diarrhea. His appetite has been good. He received fluid challenge in ER. (3) Diarrhea: Stool studies requested for C. difficile, Salmonella, Shigella, Campylobacter. COVID PCR viral panel. Hold docusate. Plan Dementia: Continue galantamine. Schizoaffective disorder: Check lithium level. Continue lithium, quetiapine, olanzapine, venlafaxine. COPD: Does have some rhonchi, warm, but not much cough, saturation 91% on room air. Will add scheduled DuoNebs. Continue as needed nebs. Goals of care discussion: Full code in case of cardiopulmonary arrest. Attestations 2 Medical Necessity Statement*: Place in observation for additional assessment and management of generalized weakness, rhabdomyolysis, suspected early pneumonia, possible aspiration pneumonia. and High MDM includes number and complexity of problems actively addressed during encounter and amount and/or complexity of data reviewed/ordered [ previous or external records, resulted lab(s)/test(s), ordered lab(s)/test(s), independent historian, independent test interpretation and other healthcare professional discussion] as documented Diagnoses Generalized weakness R53.1 Rhabdomyolysis M62.82 Diarrhea R19.7
[2023-08-03] MEDS: sodium chloride 0.9% 1,000 ML 999 ML IV (18:09)
[2023-08-03] MEDS: levofloxacin-dextrose 5 % 750 MG/150 ML PREMIX 100 MG IV (18:10)
[2023-08-03 18:44] VITALS: BP 136/86; PULSE 73; RESP 17; O2SAT 91
[2023-08-03 18:44] LABS: Influenza A by IFA negative (Negative); Influenza B by IFA negative (Negative)
[2023-08-03 19:35] VITALS: BP 139/75; PULSE 78; RESP 20; TEMP 37.8; O2SAT 94
[2023-08-03 19:38] VITALS: BP 136/86; PULSE 73; O2SAT 91
[2023-08-03 20:04] VITALS: PULSE 68; RESP 16; O2SAT 94
[2023-08-03] MEDS: ipratropium-albuterol 3 mL Neb INHALATION (20:04)
[2023-08-03] MEDS: sodium chloride 0.9% 1,000 ML 100 ML IV (20:05)
[2023-08-03 20:11] LABS: Adenovirus Not Detected (NOT DETECT); Chlamydia Pneumoniae Not Detected (NOT DETECT); Coronavirus 229E,HKU1,NL63,OC4 Not Detected (NOT DETECT); Human Metapneumovirus Not Detected (NOT DETECT); Human Rhinovirus/Enterovirus Not Detected (NOT DETECT); Influenza A Not Detected (NOT DETECT); Influenza A H1 Not Detected (NOT DETECT); Influenza A H1-2009 Not Detected (NOT DETECT); Influenza A H3 Not Detected (NOT DETECT); Influenza B Not Detected (NOT DETECT); Mycoplasma Pneumoniae Not Detected (NOT DETECT); Parainfluenza Virus Type 1 Not Detected (NOT DETECT); Parainfluenza Virus Type 2 Not Detected (NOT DETECT); Parainfluenza Virus Type 3 Detected (NOT DETECT); Parainfluenza Virus Type 4 Not Detected (NOT DETECT); Respiratory Syncytial Virus A Not Detected (NOT DETECT); Respiratory Syncytial Virus B Not Detected (NOT DETECT); SARS-COV-2 Not Detected (NOT DETECT)
[2023-08-03 20:17] LABS: Add Urine Microscopic? YES; Bilirubin Urine Neg (Negative); Blood Urine Neg (Negative); Glucose Urine UA Norm (Normal); Ketones Urine 1+ (Negative); Leukocyte Esterase Urine Negative (Negative); Nitrate Urine Negative (Negative); Protein Urine Trace (Negative); Urine Appearance Clear (CLEAR); Urine Color Yellow (Yellow); Urobilinogen Urine Norm (Negative); pH Urine 6 (5-7)
[2023-08-03 20:23] LABS: RBC Urine 0-4 /hpf (0-2)
[2023-08-03 20:24] LABS: Add Urine Culture? No; Renal Epithelial Cells Urine 0-4 /hpf; Transitional Epi Cells Urine 0-4 /hpf
[2023-08-03 20:35] LABS: Parainfluenza Virus Type 1 Not Detected (NOT DETECT); Parainfluenza Virus Type 2 Not Detected (NOT DETECT); Parainfluenza Virus Type 3 Detected (NOT DETECT); Parainfluenza Virus Type 4 Not Detected (NOT DETECT); Results from Genmark
--- NOTE | 2023-08-03 20:54 | ECG_ITS ---
[facility] Test Date: 2023-08-03 Pat Name: Erlin Yadav Department: Room: 251 Gender: Male [employer]: : 1950 Requested By: Aamir Arzola Order Number: [id number] Jody MD: Judy Mckenzie M.D. Measurements Intervals Slick Rate: 78 P: 58 ND: 242 QRS: 47 QRSD: 106 T: 79 QT: 310 QTc: 354 Interpretive Statements SINUS RHYTHM WITH FIRST DEGREE AV BLOCK WITH FREQUENT VENTRICULAR PREMATURE COMPLEXES NONSPECIFIC T-WAVE ABNORMALITY Compared to ECG 08/03/2023 17:23:56 No significant changes Electronically Signed On 08-05-2023 0:01:59 CDT by Judy Mckenzie M.D. [id number]
[2023-08-03 21:02] LABS: Lithium 0.6 mmol/L (0.6-1.2)
[2023-08-03 21:46] LABS: Troponin 5 6HR 34.33 ng/L (0-15); Troponin 5 6HR Delta 0.33 ng/L (0-12)
[2023-08-03] MEDS: ALPRAZolam 0.5 mg Tablet 1 MG PO (22:00)
[2023-08-03] MEDS: trazodone 100 mg Tablet PO (22:02)
[2023-08-03] MEDS: OLANZapine 10 mg TABLET PO (22:02)
[2023-08-03] MEDS: nicotine 14 mg Patch 1 PATCH TRANSDERMA (22:02)
[2023-08-04] VITALS (7 sets, daily range): BP systolic 113–124; BP diastolic 61–87; PULSE 45–72; RESP 15–18; TEMP 36.4–36.9; O2SAT 90–93
--- NOTE | 2023-08-04 01:36 | PC.NURSE ---
Patient's nurses from [facility]': nurse associate sales manager: Gloria Hernandez [phone] patient's nurse: Xochitl Levine [phone]
[2023-08-04] MEDS: ipratropium-albuterol 3 mL Neb INHALATION ×2 (01:45→08:11)
[2023-08-04 05:23] LABS: Basophils % 0.7 %; Eosinophils % 0.4 %; Hematocrit 38.1 % (37-53); Lymphocytes # 0.9 10^3/uL (0.8-4.8); Lymphocytes % 17.2 %; Mean Corpuscular HGB Conc 32.5 g/dL (30-55); Mean Corpuscular Hemoglobin 32.1 pg (27-33); Mean Corpuscular Volume 98.7 fl (82-101); Mean Platelet Volume 8.9 fL (7.4-10.4); Monocytes # 0.4 10^3/uL (0.2-0.9); Monocytes % 7.9 %; Neutrophils # 4.01 10^3/uL (1.8-7.7); Neutrophils % 73.6 %; Nucleated Red Blood Cells % 0 %; Platelet Count 229 10^3/cmm (157-399); Red Blood Count 3.86 10^6/uL (3.85-5.65); Red Cell Distribution Width 13.1 % (12.1-15.1); White Blood Count 5.45 10^3/uL (3.29-11.43)
[2023-08-04] MEDS: ALPRAZolam 0.5 mg Tablet PO (05:49)
[2023-08-04] MEDS: OLANZapine 5 mg TABLET 2.5 MG PO (05:49)
[2023-08-04] MEDS: sodium chloride 0.9% 1,000 ML 100 ML IV (05:52)
[2023-08-04] MEDS: venlafaxine ER (24HR) 75 mg Capsule PO (05:52)
[2023-08-04] MEDS: venlafaxine ER (24HR) 150 mg Capsule PO (05:52)
[2023-08-04 05:53] LABS: Anion Gap 12.5 (5-19); Blood Urea Nitrogen 16 mg/dL (8-23); Calcium 8.4 mg/dL (8.5-10.5); Carbon Dioxide 23 mmol/L (22-29); Chloride 108 mmol/L (98-107); Creatinine Clr Calc Pharmacy 67.6524; Glucose 86 mg/dL (65-115); Magnesium 1.9 mg/dL (1.7-2.3); Osmolality Calculated 290 mOsm/kg (285-295); Phosphorus 2.5 mg/dL (2.5-4.5); Potassium 3.5 mmol/L (3.5-5.1); Sodium 140 mmol/L (136-145); Thyroid Stimulating Hormone 3.27 uIU/mL (0.27-4.20)
[2023-08-04 06:20] LABS: Creatine Phosphokinase 713 U/L (39-308)
[2023-08-04] MEDS: lithium carbonate 300 mg Capsule PO (08:29)
[2023-08-04] MEDS: pantoprazole DR 40 mg Tablet PO (08:29)
--- NOTE | 2023-08-04 11:50 | PM.DCS ---
Discharge Providers Date of Admission: 08/03/23 18:47 Date of Discharge: August 04, 2023 Attending Provider at Admission: Villa Moreno Attending Provider at Discharge: Villa Moreno Primary Care Provider: Alexander Perez DO Diagnoses at Discharge Discharge Diagnosis (1) Generalized weakness: Status: Acute (2) Rhabdomyolysis: Status: Acute (3) Diarrhea: Status: Acute Reason for Visit Reason for Visit: confusion, dizzy, Brief History: Pleasant 73-year-old gentleman with dementia, care facility resident, usually oriented to place, recognizing some people, not oriented to date, has overall been gradually growing weaker, possibly secondary to dementia, but has been weaker still recently. Today had a witnessed fall, did not spend much time down. Has had diarrhea. In ER he is afebrile, without leukocytosis, unremarkable chemistry apart from CK elevation 739. He reportedly has been eating and drinking without change in appetite. No recent changes in his medications. Baseline troponin with mild elevation without increase at 2 hours. No intracranial abnormality on CT head. Chest x-ray with mild interstitial infiltrates in the mid and lower right lung possible developing pneumonia. Mild cardiac enlargement. Stable appearing large hiatal hernia. He himself is unable to provide history, but on review of systems denies any complaints. Hospital Course Hospital Course He was observed in the hospital. UA was obtained and not suggestive of UTI, lithium level was obtained and was unremarkable at 0.6. Due to possible early pneumonia right lower lobe, with some infiltrate on x-ray, or rhonchi on exam, he was treated with Levaquin and modified barium swallow study is being obtained. He is to continue with aspiration precautions, follow-up with speech therapy if possible. COVID-19 PCR viral panel was obtained, and he tested positive for parainfluenza 3 virus likely responsible for his generalized weakness, worse in ADL compared to usual, and likely secondary bacterial pneumonia. Will complete a brief course of Levaquin. MBS results are pending, please follow-up. Physical Exam Const: GENERAL APPEARANCE: frail appearing OTHER: Sleeping HENMT: COMMON NORMALS: oropharynx normal Neck/C-Spine: COMMON NORMALS: no JVD Resp: AUSCULTATION: rhonchi right lower Cardio: COMMON NORMALS: no JVD, regular rhythm, S1 normal heart sound present, S2 normal heart sound present and No murmurs present (Cardio) RHYTHM: regular rhythm HEART SOUNDS: S1 normal heart sound present and S2 normal heart sound present GI: COMMON NORMALS: Normal to inspection, nondistended, normoactive bowel sounds present, Soft to palpation and non-tender PALPATION: Yes Soft to palpation Extremity: COMMON NORMALS: no joint enlargement and no pedal edema Neuro: COMMON NORMALS: moves all extremities OTHER: No rigidity Skin: COMMON NORMALS: no rashes or lesions noted GENERAL SKIN EXAM: no rashes or lesions noted Discharge Data Studies Completed and Pending Completed Studies During Hospitalization Category Date Time Status CT head wo con* [id number] Stat Cat Scan 08/03/23 15:03 Completed XR chest 1V portable [id number] Stat Exams 08/03/23 15:04 Completed Pending at discharge Category Date Time Status FL barium swallow modifd 95050 Routine Exams 08/04/23 18:25 Taken Basic Metabolic Panel AM LABS Lab 08/05/23 04:00 Ordered Basic Metabolic Panel AM LABS Lab 08/06/23 04:00 Ordered Blood Culture Stat Lab 08/03/23 17:30 Results CDIFF [C.Diff PCR (Lab)] Routine Lab 08/03/23 23:18 Uncollected Complete Blood Count w/Auto AM LABS Lab 08/05/23 04:00 Ordered Complete Blood Count w/Auto AM LABS Lab 08/06/23 04:00 Ordered Radiology Impressions Head CT 08/03/23 15:03 IMPRESSION: 1. No acute intracranial abnormality. Laboratory Results WBC 5.45 10^3/uL (3.29-11.43) 08/04/23 04:18 RBC 3.86 10^6/uL (3.85-5.65) 08/04/23 04:18 Hgb 12.40 g/dL (11.27-16.99) 08/04/23 04:18 Hct 38.1 % (37-53) 08/04/23 04:18 MCV 98.7 fl (82-101) 08/04/23 04:18 MCH 32.1 pg (27-33) 08/04/23 04:18 MCHC 32.5 g/dL (30-55) 08/04/23 04:18 RDW 13.1 % (12.1-15.1) 08/04/23 04:18 Plt Count 229 10^3/cmm (157-399) 08/04/23 04:18 MPV 8.9 fL (7.4-10.4) 08/04/23 04:18 Neut % (Auto) 73.6 % 08/04/23 04:18 Lymph % (Auto) 17.2 % 08/04/23 04:18 [place] % (Auto) 7.9 % 08/04/23 04:18 Eos % (Auto) 0.4 % 08/04/23 04:18 Baso % (Auto) 0.7 % 08/04/23 04:18 Neut # (Auto) 4.01 10^3/uL (1.8-7.7) 08/04/23 04:18 Lymph # (Auto) 0.9 10^3/uL (0.8-4.8) 08/04/23 04:18 [place] # (Auto) 0.4 10^3/uL (0.2-0.9) 08/04/23 04:18 Eos # (Auto) 0.0 10^3/uL (0.0-0.8) 08/04/23 04:18 Baso # (Auto) 0.0 10^3/uL (0.0-0.1) 08/04/23 04:18 Nucleated RBC % (auto) 0 % 08/04/23 04:18 Nucleated RBCs # 0.0 /100WBC 08/04/23 04:18 Sodium 140 mmol/L (136-145) 08/04/23 04:18 Potassium 3.5 mmol/L (3.5-5.1) 08/04/23 04:18 Chloride 108 mmol/L (98-107) H 08/04/23 04:18 Carbon Dioxide 23 mmol/L (22-29) 08/04/23 04:18 Anion Gap 12.5 (5-19) 08/04/23 04:18 BUN 16 mg/dL (8-23) 08/04/23 04:18 Creatinine 1.0 mg/dL (0.7-1.2) 08/04/23 04:18 GFR Calculation Not Reportable 08/04/23 04:18 Glucose 86 mg/dL (65-115) 08/04/23 04:18 Calculated Osmolality 290 mOsm/kg (285-295) 08/04/23 04:18 Lactic Acid 1.3 mmol/L (0.5-2.2) 08/03/23 15:32 Calcium 8.4 mg/dL (8.5-10.5) L 08/04/23 04:18 Phosphorus 2.5 mg/dL (2.5-4.5) 08/04/23 04:18 Magnesium 1.9 mg/dL (1.7-2.3) 08/04/23 04:18 Total Bilirubin 0.3 mg/dL (0.15-1.2) 08/03/23 15:32 AST 27 U/L (0-40) 08/03/23 15:32 ALT 19 U/L (0-41) 08/03/23 15:32 Alkaline Phosphatase 109 U/L (40-130) 08/03/23 15:32 Creatine Kinase 713 U/L (39-308) H* 08/04/23 04:18 Troponin T Baseline 34 ng/L (0-15) H 08/03/23 15:32 Troponin T 120 Minute 36.94 ng/L (0-15) H 08/03/23 17:25 Delta Troponin T 2.94 ABS# (0-10) 08/03/23 17:25 Troponin T Hi Sens 6Hr 34.33 ng/L (0-15) H 08/03/23 21:23 Troponin T Hi Sens 6Hr Delta 0.33 ng/L (0-12) 08/03/23 21:23 Total Protein 6.8 g/dL (6.6-8.7) 08/03/23 15:32 Albumin 4.0 g/dL (3.5-5.2) 08/03/23 15:32 Globulin 2.8 g/dL (1.3-4.6) 08/03/23 15:32 TSH 3.27 uIU/mL (0.27-4.20) 08/04/23 04:18 Urine Color Yellow (Yellow) 08/03/23 19:12 Urine Appearance Clear (CLEAR) 08/03/23 19:12 Urine pH 6 (5-7) 08/03/23 19:12 Ur Specific [place] 1.020 (1.005-1.030) 08/03/23 19:12 Urine Protein Trace (Negative) 08/03/23 19:12 Urine Glucose (UA) Norm (Normal) 08/03/23 19:12 Urine Ketones 1+ (Negative) H 08/03/23 19:12 Urine Blood Neg (Negative) 08/03/23 19:12 Urine Nitrate Negative (Negative) 08/03/23 19:12 Urine Bilirubin Neg (Negative) 08/03/23 19:12 Urine Urobilinogen Norm mg/dL (Negative) 08/03/23 19:12 Ur Leukocyte Esterase Negative (Negative) 08/03/23 19:12 Urine RBC 0-4 /hpf (0-2) H 08/03/23 19:12 Urine WBC 5-10 /hpf (0-5) H 08/03/23 19:12 Ur Squamous Epith Cells None /hpf (0-5) 08/03/23 19:12 Ur Transition Epith Cell 0-4 /hpf 08/03/23 19:12 Ur Renal Epithelial Cell 0-4 /hpf 08/03/23 19:12 Amorphous Sediment Not Reportable 08/03/23 19:12 Urine Bacteria None /hpf (NONE) 08/03/23 19:12 Urine Mucus None /hpf 08/03/23 19:12 [place] 0.6 mmol/L (0.6-1.2) 08/03/23 20:07 Coronavirus 229E (PCR) Not detected (NOT DETECT) 08/03/23 18:13 Influenza Type A Ag negative (Negative) 08/03/23 18:13 Influenza Type B Ag negative (Negative) 08/03/23 18:13 Parainfluenza 1 (PCR) Not detected (NOT DETECT) 08/03/23 20:35 Parainfluenza 2 (PCR) Not detected (NOT DETECT) 08/03/23 20:35 Parainfluenza 3 (PCR) Detected (NOT DETECT) A 08/03/23 20:35 Parainfluenza 4 (PCR) Not detected (NOT DETECT) 08/03/23 20:35 SARS-CoV-2 (PCR) Not detected (NOT DETECT) 08/03/23 18:13 Vitals Last Vital Signs Temp 97.9 F 08/04/23 07:52 Pulse 56 L 08/04/23 08:00 Resp 15 08/04/23 08:00 BP 124/87 08/04/23 07:52 Pulse Ox 93 08/04/23 08:00 O2 Del Method Room Air 03/27/24 08:00 Discharge Plan Discharge Patient Disposition: Home Condition: Stable Prescriptions: New levofloxacin 500 mg tablet 500 mg PO DAILY 5 Days Qty: 5 0RF Continued (DME) wheelchair See Rx Instructions .Route .MEDSUPPLY Qty: 1 0RF Rx Instructions: As directed (DME) Hospital bed See Rx Instructions .Route .MEDSUPPLY Qty: 1 0RF Rx Instructions: Please issue hospital bed due to Orthopnea, COPD, paroxysmal nocturnal dyspnea. Kaopectate Liquid Vanilla 8oz See Rx Instructions .ROUTE .COMPLEX Qty: 240 5RF Dose Instruction: give 30Ml BY MOUTH with loose stool NEEDED FOR DIARRHEA DO not exceed FOUR doses in 24 hours Rx Instructions: May give 30Ml q2hr as needed FOR DIARRHEA DO not exceed FOUR doses in 24 hours. ketoconazole 2 % shampoo See Rx Instructions .ROUTE .COMPLEX Qty: 120 5RF Dose Instruction: USE THREE times PER WEEK Rx Instructions: USE THREE times PER WEEK (DME) Cerave Moisturizing Cream cream See Rx Instructions .Route .MEDSUPPLY Qty: 1 5RF Dose Instruction: APPLY TO HANDS AND FEET TWICE DAILY AND NEEDED FOR DRY SKIN Rx Instructions: APPLY TO HANDS/FEET TWICE DAILY AND NEEDED FOR DRY SKIN lorazepam 1 mg tablet 1 mg PO Q12H PRN (Reason: agitation) Qty: 30 1RF olanzapine 10 mg tablet 10 mg PO BEDTIME alum-mag hydroxide-simeth 200-200-20 mg/5 mL Suspension 30 ml PO Q4H PRN (Reason: Indigestion) Rx Instructions: administer between meals and at bedtime Incruse Ellipta 62.5 mcg/actuation blister with device 1 inh INHALATION QAM venlafaxine 75 mg capsule,extended release 24hr 75 mg PO QAM Rx Instructions: ALONG WITH 150MG TO = 225 MG ibuprofen 800 mg tablet 800 mg PO Q8H PRN (Reason: PAIN OR ELEVATED TEMP) Rx Instructions: FOR HIGH TEMPERATURE >100F alprazolam 1 mg tablet See Rx Instructions .ROUTE .COMPLEX Rx Instructions: TAKE ONE-HALF TABLET BY MOUTH IN THE AM AND 1 TABLET IN THE EVENING. galantamine 4 mg tablet 4 mg PO BID venlafaxine 150 mg capsule,extended release 24hr 150 mg PO QAM Rx Instructions: ALONG WITH 75MG TO = 225MG olanzapine 2.5 mg tablet 2.5 mg PO QAM acetaminophen 500 mg tablet 1,000 mg PO Q4H PRN (Reason: PAIN OR FEVER) Rx Instructions: > 100 triamcinolone acetonide 0.025 % cream 1 applic TOPICAL QAM tamsulosin 0.4 mg capsule 0.4 mg PO QPM trazodone 100 mg tablet 100 mg PO BEDTIME lithium carbonate 300 mg capsule 300 mg PO BID docusate sodium 100 mg capsule 100 mg PO BID omeprazole 20 mg capsule,delayed release(DR/EC) 20 mg PO BID Ventolin HFA 90 mcg/actuation HFA aerosol inhaler 1 puff inhalation Q4H PRN (Reason: Shortness Of Breath) loratadine 10 mg tablet 10 mg PO DAILY PRN (Reason: ALLERGIES) quetiapine 400 mg tablet 400 mg PO BID Daily-Carlos (with folic acid) 400 mcg tablet 1 tab PO QAM Cerave Moisturizing Cream 16oz See Rx Instructions .ROUTE .COMPLEX PRN (Reason: Dry Skin) Rx Instructions: APPLY TO HANDS AND FEET TWICE DAILY AND NEEDED FOR DRY SKIN. Discharge Orders: Discharge Order (Routine); Ordered 08/04/23 Ordered By: Villa Moreno Referrals: Alexander Perez DO [Primary Care Provider] - 08/10/23 9:00 am Discharge Diet: Usual diet Discharge Activity: Increase activity as tolerated Patient Instructions: Levofloxacin (By mouth), Rhabdomyolysis (GEN), Weakness (GEN), Parainfluenza (GEN) Activity Restrictions/Additional Instructions: Isolate for paranfluenza over next 5 days and until symptoms improving. Cough medicine as needed. Complete short course of levaquin for concern of early secondary pneumonia with viral infection. Aspiration precautions. Follow up with speech therapy. Discharge Attestations Time Spent in Discharge Care*: greater than 30 min Quality Metrics Clinical Quality Measures [ No reported AMI, CVA or VTE this stay] Coding Level of Care Code 60061 Total time (in minutes) for Discharge: 35 Diagnoses Generalized weakness R53.1 Rhabdomyolysis M62.82 Diarrhea R19.7
--- NOTE | 2023-08-04 18:25 | FL_ITS ---
WS: [id number] Exam: FL barium swallow modifd 92214 Date/Time of Exam: 08/04/2023 11:27 AM Reason For Exam: Oropharyngeal dysphagia Fluoroscopy time: 2min [id number] minutes # of spot films: Modified barium swallow was performed in conjunction with the speech therapy service. Oropharyngeal phase of swallowing was grossly normal. The patient experienced 1 episode of significan t penetration into the laryngeal inlet when ingesting thin liquid barium solution. There was pooling and residue in the vallecula with all consistencies of barium mixture foodstuffs. No aspiration was s een. The patient swallowed a barium tablet without difficulty. It is noted that the patient has a lar ge paraesophageal hiatal hernia which displaces the distal esophagus somewhat posterior to normal pos ition. IMPRESSION: 1. The patient experienced significant penetration into the laryngeal inlet when ingesting thin liqui d barium solution. 2. Some pooling and residual in the vallecula when ingesting all consistencies of barium mixture food stuffs. 3. Large paraesophageal hiatal hernia visualized. A separate report of the recommendations and findings will be provided by the speech therapy service.
== END 2023-08-04 13:39 | disposition home or self-care (01) ==
LOC: ER 18:45 → MEDSURG 18:48
PROVIDERS: Admitting Provider Internal Medicine; Emergency Provider Family Medicine; PCP Family Medicine; Visit Provider Internal Medicine
DX: R53.1 Weakness (principal); M62.82 Rhabdomyolysis; R19.7 Diarrhea, unspecified; F03.90 Unspecified dementia, unspecified severity, without behavioral disturbance, psychotic disturbance, mood disturbance, and anxiety; Z91.81 History of falling; J44.9 Chronic obstructive pulmonary disease, unspecified; K21.9 Gastro-esophageal reflux disease without esophagitis; F17.210 Nicotine dependence, cigarettes, uncomplicated; F20.9 Schizophrenia, unspecified
CPT/HCPCS: 36415; 70450; 71045; 74230; 80048; 80053; 80178; 81001; 82550; 83605; 83735; 84100; 84443; 84484; 85025; 87040; 87631; 87635; 87804; 92611; 93005; 94640; 96365; 99285; G0378; J1956; J7030

== ENCOUNTER → 2023-12-17 10:57 | Outpatient (BNVA) | payer MEDICARE, MEDICAID, SELFPAY | PROVIDERS: PCP Family Medicine; Visit Provider Internal Medicine Critical Care Medicine | DX: J41.0 Simple chronic bronchitis (principal); F17.219 Nicotine dependence, cigarettes, with unspecified nicotine-induced disorders; Z91.89 Other specified personal risk factors, not elsewhere classified; K44.9 Diaphragmatic hernia without obstruction or gangrene; K21.9 Gastro-esophageal reflux disease without esophagitis; R91.8 Other nonspecific abnormal finding of lung field; G31.83 Neurocognitive disorder with Lewy bodies | CPT/HCPCS: 99214 ==

== ENCOUNTER → 2024-05-16 11:24 | Outpatient (BNVA) | payer MEDICARE, MEDICAID, SELFPAY | PROVIDERS: PCP Family Medicine; Visit Provider Specialist | DX: R29.90 Unspecified symptoms and signs involving the nervous system (principal); G31.83 Neurocognitive disorder with Lewy bodies; F02.B18 Dementia in other diseases classified elsewhere, moderate, with other behavioral disturbance; F31.31 Bipolar disorder, current episode depressed, mild; R26.9 Unspecified abnormalities of gait and mobility | CPT/HCPCS: 99213 ==

== ENCOUNTER 2024-05-25 13:01 | Outpatient (CLI) | payer MEDICARE, MEDICAID, SELFPAY ==
--- NOTE | 2024-05-25 13:00 | CT_ITS ---
WS: [id number] CT chest wo con [id number] HISTORY: MULTIPLE LUNG NODULES TECHNIQUE: Axial imaging performed through the thorax. Coronal and sagittal reformats are submitted. All CT scans at [facility] use at least one of these dose optimization techniques: automated exposure control; mA and/or kV adjustment per patient size (includes targeted exams where dose is mat ched to clinical indication); or iterative reconstruction. CONTRAST: None DLP: 241.42 mGy.cm COMPARISON: 05/27/2022, 11/12/2022, 05/20/2023 Lungs and central airway: Motion artifact from breathing. 5 mm pleural-based nodule anterior RIGHT up per lobe remains stable over multiple prior examinations including prior exams to 04/16/2022. Previous ly nodule at the RIGHT lung base is reidentified but there is now a multi lobar areas of dense consol idations which have progressed. This is most likely pneumonia with components of atelectasis. The nod ule is reidentified but partially obscured by the adjacent opacifications. Benign granuloma LEFT lowe r lobe. Pleura: Normal. No pleural effusion. Heart and pericardium: Normal size heart with no pericardial effusion. Mediastinum and marshall: No mediastinum or hilar adenopathy. Vessels: Moderate plaque within the thoracic aorta. Chest wall and lower neck: No soft tissue masses. Upper abdomen: Stomach is intrathoracic. Air-fluid level is within the intrathoracic stomach. This in trathoracic stomach has been previously described. Similar appearance to the prior study. No ischemia or obstruction is identified at this time. Atrophic pancreas. Limited by motion artifact. Osseous structures: Advanced curvature thoracic spine with scoliosis. CT/CT chest wo con [id number] IMPRESSION: 1. New multifocal opacifications at the RIGHT lung base partially obscures the previously described 13 mm nodule. New opacification is most likely pneumonia and adjacent atelectasis. Difficult to determine if there has been a change in size of the 13 mm nodule due to the overlapping new pulmonary opacifications. C onsider follow-up chest CT in 3 months after treatment. 2. Long-term stability pleural-based 5 mm nodule RIGHT upper lobe. No addition al follow-up necessary. 3. Intrathoracic stomach. No evidence for ischemia or obstruction at this time . 4. Chronic emphysema.
== END 2024-05-25 13:02 | disposition home or self-care (01) ==
LOC: RAD 13:03
PROVIDERS: PCP Family Medicine; Visit Provider Family Medicine
DX: R91.8 Other nonspecific abnormal finding of lung field (principal); R93.3 Abnormal findings on diagnostic imaging of other parts of digestive tract; J43.8 Other emphysema; J84.10 Pulmonary fibrosis, unspecified; I70.0 Atherosclerosis of aorta; K86.89 Other specified diseases of pancreas; M43.8X4 Other specified deforming dorsopathies, thoracic region; M41.84 Other forms of scoliosis, thoracic region
CPT/HCPCS: 71250

== ENCOUNTER 2024-07-04 09:08 | Emergency (ER) | payer MEDICARE, MEDICAID, SELFPAY ==
[2024-07-04 09:36] VITALS: BP 103/59; PULSE 70; RESP 14; TEMP 36.3; O2SAT 97; BMI 19.3
--- NOTE | 2024-07-04 09:53 | XRR_ITS ---
PROCEDURE INFORMATION: Exam: XR Chest Exam date and time: 07/04/2024 10:12 AM Age: 74 years old Clinical indication: Other: Weakness TECHNIQUE: Imaging protocol: Radiologic exam of the chest. Views: 1 view. COMPARISON: 1. CT chest wo con [id number] 05/25/2024 1:06 PM 2. CR XR chest 1V portable [id number] 08/03/2023 3:09 PM FINDINGS: Lungs: Known large hiatal hernia. Mild opacities in the medial right lung base. Left basilar opacities which are likely in part secondary to hiatal hernia. Pleural spaces: No pleural effusion. No pneumothorax. Heart/Mediastinum: Stable cardiomediastinal silhouette. Aortic calcifications. Bones/joints: No acute abnormality. XR/XR chest 1V portable [id number] IMPRESSION: [id number] bibasilar opacities may be secondary to atelectasis and/or infectious/inflammatory process, opacities on the left are likely in part secondary to known large hiatal hernia.
--- NOTE | 2024-07-04 09:53 | CT_ITS ---
WS: [id number] CT HEAD TECHNIQUE: Noncontrast CT of the head obtained from the skullbase to the vertex. CLINICAL INFORMATION: fall COMPARISON: 08/03/2023 DLP: 1365.[address] scans at [facility] use at least one of these dose optimization techniques: automated exposure control; mA and/or kV adjustment per patient size (includes targeted exams where dose is matched to clinical indication); or iterative reconstruction. FINDINGS: No evidence of intracranial hemorrhage or mass effect. Ventricular system and basal cisterns are patent. Mild small vessel changes with mild parenchymal volume loss. No extra-axial fluid collections. No evidence of mass or mass effect. Vascular calcification. Trace mucosal thickening in the paranasal sinuses. Mastoid air cells are well aerated. CT/CT head wo con* [id number] IMPRESSION: 1. No evidence of intracranial hemorrhage or mass effect. 2. Mild small vessel changes. Mild parenchymal volume loss. 3. No acute intracranial findings.
--- NOTE | 2024-07-04 09:53 | CT_ITS ---
WS: [id number] CT CERVICAL TRAUMA TECHNIQUE: Noncontrast CT of the cervical spine with coronal and sagittal reformatted images. CLINICAL INFORMATION: fall COMPARISON: None. DLP: 1365.[address] scans at [facility] use at least one of these dose optimization techniques: automated exposure control; mA and/or kV adjustment per patient size (includes targeted exams where dose is matched to clinical indication); or iterative reconstruction. FINDINGS: Exaggeration of the normal cervical lordosis. Mild atlantoaxial rotation. Slight anterolisthesis C4 on C5. Disc osteophyte complex at C5-6 with mild central canal stenosis. Disc space narrowing C6-7. Slight anterolisthesis C7 on T1. Dens is normal in appearance. Normal occipital condyles. Normal C1 ring. No evidence of acute fracture or dislocation. Normal prevertebral soft tissues. Fibrosis in the lung apices. Few small thyroid nodules. Mastoids air cells are well aerated. CT/CT cervical spin wo con* [id number] IMPRESSION: No evidence of acute fracture or dislocation.
--- NOTE | 2024-07-04 09:54 | ED_ITS ---
HPI - Fall 2 General: Chief Complaint: Fall Stated Complaint: fall twice within 24 hrs Time Seen by Provider: 07/04/24 09:13 Source: patient and other ([facility] care staff) Mode of arrival: wheelchair Limitations: no limitations History of Present Illness: Patient is a 74-year-old male presents to ED today along with his [facility] staff to be checked out following 2 falls. Patient has a longstanding history of Lewy body dementia. Also has bipolar, chronic heavy smoker, neurologic gait disorder. He is chronically unsteady on his feet. Staff states his weakness seems to wax and wane. He has been somewhat weaker over the last several days which is not uncommon for him. He reportedly has had 2 falls over the last few days. Unwitnessed. The patient is not complaining of any physical complaints at this time. Care staff with him is very familiar with patient states he seems to be at his mental baseline. He reportedly sees Dr. Scott for his dementia. Dr. cerrato is their PCP through the [facility]. Onset (ago): day(s) Fall witnessed: no Place fall occurred: home Loss of consciousness: None Prolonged down time: no Associated symptoms-after fall: Denies abdominal pain, chest pain, headache(s), hematuria, lightheadedness or neck pain Related Data Home Medications ?Medication ?Instructions ?Recorded ?Confirmed cetirizine 10 mg tablet 10 mg PO DAILY 07/04/2406/11 Previous Rx's ?Medication ?Instructions ?Recorded ipratropium 0.5 mg-albuterol 3 mg 3 ml inhalation TID #180 mL 12/17/23 (2.5 mg base)/3 mL nebulization soln omeprazole 20 mg capsule,delayed See Rx Instructions . Route 12/20/23 release .COMPLEX #60 caps galantamine 4 mg tablet 4 mg PO BID #60 tabs 4 alprazolam 1 mg tablet See Rx Instructions .Route 1 06/14/23 .COMPLEX #60 tabs lithium carbonate 300 mg capsule 300 mg PO BID #60 cap s 04/13/24 quetiapine 100 mg tablet 100 mg PO DAILY #30 tabs 02/01 quetiapine 400 mg tablet See Rx Instructions .Route 0 05/18/24 .COMPLEX #60 tabs tamsulosin 0.4 mg capsule See Rx Instructions .Route 0 05/31/24 .COMPLEX #30 caps trazodone 100 mg tablet See Rx Instructions .Route 0 05/31/24 .COMPLEX #30 tabs olanzapine 10 mg tablet See Rx Instructions .Route 0 06/20/24 .COMPLEX #90 tabs olanzapine 2.5 mg tablet See Rx Instructions .Route 0 06/20/24 .COMPLEX #90 tabs venlafaxine 150 mg 150 mg PO QAM #30 caps 06/21 capsule,extended release 24 hr venlafaxine 75 mg capsule,extended See Rx Instructions .Route 06/21/24 release 24 hr .COMPLEX #30 caps lorazepam 1 mg tablet 1 mg PO Q12H PRN agitation # 30 tabs 06/29/24 acetaminophen 500 mg tablet See Rx Instructions .Route 07/03/24 .COMPLEX #120 tabs ibuprofen 800 mg tablet See Rx Instructions .Route 0 07/03/24 .COMPLEX #90 tabs Allergies Allergy/AdvReac Type Severity Reaction Status Date / Time azithromycin Allergy Unknown Unknown Verified 07/04/24 09:36 Macrolide Antibiotics Allergy Unknown Verified 07/04/24 09:36 Review of Systems 2 Const: Denies: fever(s), chills or body aches Eyes: Denies: change in vision, blurry vision, photophobia, eye discharge, floaters or seeing flashes ENMT: Denies: throat pain, odynophagia, ear or mastoid pain, ear discharge, nasal discharge, epistaxis or sinus pain Card: Denies: chest pain, palpitations, lightheadedness, syncope or pre- syncope Resp: Denies: dyspnea or pain on inspiration GI: Denies: abdominal pain : Denies: flank pain or hematuria Musc: Denies: neck pain, back pain, extremity pain or joint pain Neuro: Denies: headache(s), numbness in extremities, weakness in extremities, sensory changes or dizziness PFSH ED 2 PFSH: Medical History Dementia COPD (chronic obstructive pulmonary disease) GERD (gastroesophageal reflux disease) Schizo affective schizophrenia Surgical History History of hip surgery Social History Smoking and tobacco/nicotine status: current every day tobacco/nicotine user (5 a day) cigarettes Packs smoked per day: 1 Years cigarettes smoked: 61 [ Other cigarette details: 10-12 cigarettes per day] Alcohol intake: former Physical Exam 2 Const: COMMON NORMALS: no acute distress, average body habitus, alert and well nourished GENERAL APPEARANCE: cooperative ORIENTATION/CONSCIOUSNESS: Yes awake and Yes oriented to person HENMT: COMMON NORMALS: normocephalic and atraumatic HEAD & SCALP: normal to inspection, normocephalic and atraumatic FACE & SINUS: normal facial exam Eye: GENERAL EYE: appearance normal, both eyes and all related structures Neck/C-Spine: GENERAL: Yes normal visual inspection CERVICAL SPINE: No Cervical spine tenderness Chest: COMMONS NORMALS: normal inspection of the chest and normal palpation of entire chest wall Resp: COMMON NORMALS: normal respiratory effort and clear to auscultation bilaterally AUSCULTATION: clear to auscultation bilaterally Cardio: COMMON NORMALS: regular rate and regular rhythm RATE: regular rate RHYTHM: regular rhythm GI: COMMON NORMALS: Normal to inspection, nondistended, normoactive bowel sounds present, Soft to palpation and non-tender PALPATION: Yes Soft to palpation Back/Pelvis: COMMON NORMALS: thoracic and lumbar spine normal to inspection Extremity: GENERAL: Yes normal exam except as noted Neuro: COMMON NORMALS: moves all extremities, no focal motor deficits and no sensory deficits noted SENSORIUM/ORIENTATION: Yes alert and Yes oriented to person Skin: NARRATIVE SKIN EXAM: flaking seborrheic skin rash-chronic Course 2 Vital Signs: Vital signs: Vital Signs Temperature 97.4 F L 07/04/24 09:36 Pulse Rate 64 07/04/24 10:59 Respiratory Rate 18 07/04/24 10:59 Blood Pressure 152/85 07/04/24 10:59 Pulse Oximetry 98 07/04/24 10:59 Oxygen Delivery Me thod Room Air 07/04/24 10:59 MDM - Fall Medical Decision Making Patient clinically is at his baseline. Vital signs are stable. His blood work and UA here are unremarkable. Imaging of his CT head/cervical spine were obtained and unremarkable. CXR showing chronic findings. He has a known large hiatal hernia. Patient was ambulatory here with the help of a walker. Care staff is asking if we can get him set up with a walker at home to hopefully prevent further falls. HOME will bring of these prior to his discharge. They have follow up next week with Dr. Perez. Medical Records I reviewed the patient's medical records. Lab Data I reviewed the patient's lab results. 07/04/24 10:45 07/04/24 10:45 Radiology Impressions Cervical Spine CT 07/04/24 09:53 IMPRESSION: No evidence of acute fracture or dislocation. Head CT 07/04/24 09:53 IMPRESSION: 1. No evidence of intracranial hemorrhage or mass effect. 2. Mild small vessel changes. Mild parenchymal volume loss. 3. No acute intracranial findings. Laboratory Results WBC 5.41 10^3/uL (3.29-11.43) 07/04/24 10:45 RBC 4.15 10^6/uL (3.85-5.65) 07/04/24 10:45 Hgb 12.80 g/dL (11.27-16.99) 07/04/24 10:45 Hct 40.5 % (37-53) 07/04/24 10:45 MCV 97.6 fl (82-101) 07/04/24 10:45 MCH 30.8 pg (27-33) 07/04/24 10:45 MCHC 31.6 g/dL (30-55) 07/04/24 10:45 RDW 13.6 % (12.1-15.1) 07/04/24 10:45 Plt Count 213 10^3/cmm (157-399) 07/04/24 10:45 MPV 8.6 fL (7.4-10.4) 07/04/24 10:45 Neut % (Auto) 81.0 % 07/04/24 10:45 Lymph % (Auto) 12.4 % 07/04/24 10:45 [place] % (Auto) 5.7 % 07/04/24 10:45 Eos % (Auto) 0.0 % 07/04/24 10:45 Baso % (Auto) 0.7 % 07/04/24 10:45 Neut # (Auto) 4.38 10^3/uL (1.8-7.7) 07/04/24 10:45 Lymph # (Auto) 0.7 10^3/uL (0.8-4.8) L 07/04/24 10:45 [place] # (Auto) 0.3 10^3/uL (0.2-0.9) 07/04/24 10:45 Eos # (Auto) 0.0 10^3/uL (0.0-0.8) 07/04/24 10:45 Baso # (Auto) 0.0 10^3/uL (0.0-0.1) 07/04/24 10:45 Nucleated RBC % (auto) 0 % 07/04/24 10:45 Nucleated RBCs # 0.0 /100WBC 07/04/24 10:45 Sodium 141 mmol/L (136-145) 07/04/24 10:45 Potassium 4.4 mmol/L (3.5-5.1) 07/04/24 10:45 Chloride 108 mmol/L (98-107) H 07/04/24 10:45 Carbon Dioxide 24 mmol/L (22-29) 07/04/24 10:45 Anion Gap 13.4 (5-19) 07/04/24 10:45 BUN 16 mg/dL (8-23) 07/04/24 10:45 Creatinine 1.2 mg/dL (0.7-1.2) 07/04/24 10:45 GFR Calculation Not Reportable 07/04/24 10:45 Glucose 96 mg/dL (65-115) 07/04/24 10:45 Calculated Osmolality 293 mOsm/kg (285-295) 07/04/24 10:45 Calcium 8.6 mg/dL (8.5-10.5) 07/04/24 10:45 Total Bilirubin 0.4 mg/dL (0.15-1.2) 07/04/24 10:45 AST 18 U/L (0-40) 07/04/24 10:45 ALT 13 U/L (0-41) 07/04/24 10:45 Alkaline Phosphatase 124 U/L (40-130) 07/04/24 10:45 Total Protein 6.4 g/dL (6.6-8.7) L 07/04/24 10:45 Albumin 3.8 g/dL (3.5-5.2) 07/04/24 10:45 Globulin 2.6 g/dL (1.3-4.6) 07/04/24 10:45 Urine Color Yellow (Yellow) 07/04/24 10:39 Urine Appearance Clear (CLEAR) 07/04/24 10:39 Urine pH 7.0 (5-7) 07/04/24 10:39 Ur Specific [place] 1.012 (1.005-1.030) 07/04/24 10:39 Urine Protein Negative (Negative) 07/04/24 10:39 Urine Glucose (UA) Negative (Normal) 07/04/24 10:39 Urine Ketones Negative (Negative) 07/04/24 10:39 Urine Blood Negative (Negative) 07/04/24 10:39 Urine Nitrate Negative (Negative) 07/04/24 10:39 Urine Bilirubin Negative (Negative) 07/04/24 10:39 Urine Urobilinogen 1.0 mg/dL (Negative) 07/04/24 10:39 Ur Leukocyte Esterase Negative (Negative) 07/04/24 10:39 Amorphous Sediment Not Reportable 07/04/24 10:39 All radiology interpretation(s) finalized by discharge Discharge Plan Discharge Patient Disposition: Home Clinical Impression: Neurologic gait disorder Fall Qualifiers: Encounter type: initial encounter Qualified Code(s): W19.XXXA - Unspecified fall, initial encounter Lewy body dementia Qualifiers: Dementia severity: moderate Dementia behavioral or psychological symptom: with other behavioral disturbance Qualified Code(s): G31.83 - Neurocognitive disorder with Lewy bodies Condition: Stable Prescriptions: No Action ipratropium-albuterol 0.5 mg-3 mg(2.5 mg base)/3 mL solution for nebulization 3 ml inhalation TID Qty: 180 6RF omeprazole 20 mg capsule,delayed release(DR/EC) See Rx Instructions .ROUTE .COMPLEX Qty: 60 6RF Dose Instruction: TAKE ONE CAPSULE BY MOUTH TWICE DAILY FOR GERD Rx Instructions: TAKE ONE CAPSULE BY MOUTH TWICE DAILY FOR GERD galantamine 4 mg tablet 4 mg PO BID Qty: 60 5RF alprazolam 1 mg tablet See Rx Instructions .ROUTE .COMPLEX Qty: 60 5RF Rx Instructions: TAKE ONE-HALF TABLET BY MOUTH IN THE AM AND 1 TABLET IN THE EVENING. lithium carbonate 300 mg capsule 300 mg PO BID Qty: 60 5RF quetiapine 100 mg tablet 100 mg PO DAILY Qty: 30 5RF Rx Instructions: 100 mg in AM and 400 mg in pM quetiapine 400 mg tablet See Rx Instructions .ROUTE .COMPLEX Qty: 60 3RF Dose Instruction: TAKE ONE TABLET BY MOUTH TWICE DAILY FOR bipolar disorder Rx Instructions: TAKE ONE TABLET BY MOUTH every evening FOR bipolar disorder trazodone 100 mg tablet See Rx Instructions .ROUTE .COMPLEX Qty: 30 11RF Dose Instruction: TAKE ONE TABLET BY MOUTH EVERY NIGHT AT BEDTIME FOR insomnia Rx Instructions: TAKE ONE TABLET BY MOUTH EVERY NIGHT AT BEDTIME FOR insomnia tamsulosin 0.4 mg capsule See Rx Instructions .ROUTE .COMPLEX Qty: 30 11RF Dose Instruction: TAKE ONE CAPSULE BY MOUTH EVERY NIGHT AT BEDTIME FOR urinary retention Rx Instructions: TAKE ONE CAPSULE BY MOUTH EVERY NIGHT AT BEDTIME FOR urinary retention olanzapine 10 mg tablet See Rx Instructions .ROUTE .COMPLEX Qty: 90 3RF Dose Instruction: TAKE ONE TABLET BY MOUTH EVERY NIGHT AT BEDTIME; FOR BIPOLAR DISORDER Rx Instructions: TAKE ONE TABLET BY MOUTH EVERY NIGHT AT BEDTIME; FOR BIPOLAR DISORDER olanzapine 2.5 mg tablet See Rx Instructions .ROUTE .COMPLEX Qty: 90 3RF Dose Instruction: TAKE ONE TABLET BY MOUTH EVERY DAY in THE morning FOR bipolar disorder Rx Instructions: TAKE ONE TABLET BY MOUTH EVERY DAY in THE morning FOR bipolar disorder venlafaxine 150 mg capsule,extended release 24hr 150 mg PO QAM Qty: 30 5RF Rx Instructions: ALONG WITH 75MG TO = 225MG venlafaxine 75 mg capsule,extended release 24hr See Rx Instructions .ROUTE .COMPLEX Qty: 30 2RF Dose Instruction: TAKE ONE CAPSULE BY MOUTH EVERY DAY with 150mg TO = 225mg; FOR BIPOLAR DISORDER Rx Instructions: TAKE ONE CAPSULE BY MOUTH EVERY DAY with 150mg TO = 225mg; FOR BIPOLAR DISORDER lorazepam 1 mg tablet 1 mg PO Q12H PRN (Reason: agitation) Qty: 30 1RF ibuprofen 800 mg tablet See Rx Instructions .ROUTE .COMPLEX Qty: 90 5RF Dose Instruction: TAKE 1 TABLET BY MOUTH EVERY 8 HOURS NEEDED FOR PAIN OR ELEVATED FOR HIGH TEMPERATURE > 100.4F DO NOT EXCEED 3 TABS/24 HOURS Rx Instructions: TAKE 1 TABLET BY MOUTH EVERY 8 HOURS NEEDED FOR PAIN OR ELEVATED FOR HIGH TEMPERATURE > 100.4F DO NOT EXCEED 3 TABS/24 HOURS acetaminophen 500 mg tablet See Rx Instructions .ROUTE .COMPLEX Qty: 120 5RF Dose Instruction: TAKE TWO TABLETS BY MOUTH EVERY 4 HOURS NEEDED FOR PAIN /FEVER > 100.4 DO NOT EXCEED 8 TABS/24 HOURS Rx Instructions: TAKE TWO TABLETS BY MOUTH EVERY 4 HOURS NEEDED FOR PAIN /FEVER > 100.4 DO NOT EXCEED 8 TABS/24 HOURS cetirizine 10 mg Tablet 10 mg PO DAILY Discharge Orders: Discharge ED (Routine); Ordered 07/04/24 Ordered By: Shaye Smallwood Other Ambulatory Orders: DME: Walker (Order) Location: None Selected Ordered By: Shaye Smallwood Referrals: Alexander Perez DO [Primary Care Provider] - Activity Restrictions/Additional Instructions: As we discussed, we will send Erlin with a walker to help with his ambulation and hopefully prevent further falls. Work up here was benign. Imaging of head/cervical spine were obtained and unremarkable. Print Language: Faroese Coding Level of Care Code ED Aircraft Maintenance Engineer for Leodan Taveras
[2024-07-04 09:58] VITALS: BP 132/92; PULSE 61; RESP 16; O2SAT 93
--- NOTE | 2024-07-04 10:05 | ECG_ITS ---
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1950 Requested By: Shaye Smallwood Order Number: [id number] Reading MD: TAY YANEZ Measurements Intervals [place] Rate: 68 P: 59 DC: 229 QRS: 26 QRSD: 101 T: 80 QT: 436 QTc: 465 Interpretive Statements SINUS RHYTHM WITH FIRST DEGREE AV BLOCK WITH FREQUENT VENTRICULAR PREMATURE COMPLEXES NONSPECIFIC T-WAVE ABNORMALITY Compared to ECG 08/03/2023 20:54:14 Ventricular premature complex(es) now present T-wave abnormality still present Electronically Signed On 07-04-2024 23:45:53 ELEMENTARY SCHOOL SCIENCE TEACHER by TAY YANEZ [email or web address]
[2024-07-04 10:51] LABS: Basophils % 0.7 %; Hematocrit 40.5 % (37-53); Lymphocytes # 0.7 10^3/uL (0.8-4.8); Lymphocytes % 12.4 %; Mean Corpuscular HGB Conc 31.6 g/dL (30-55); Mean Corpuscular Hemoglobin 30.8 pg (27-33); Mean Corpuscular Volume 97.6 fl (82-101); Mean Platelet Volume 8.6 fL (7.4-10.4); Monocytes # 0.3 10^3/uL (0.2-0.9); Monocytes % 5.7 %; Neutrophils # 4.38 10^3/uL (1.8-7.7); Nucleated Red Blood Cells % 0 %; Platelet Count 213 10^3/cmm (157-399); Red Blood Count 4.15 10^6/uL (3.85-5.65); Red Cell Distribution Width 13.6 % (12.1-15.1); White Blood Count 5.41 10^3/uL (3.29-11.43)
[2024-07-04 10:58] LABS: Add Urine Microscopic? NO
[2024-07-04 10:59] VITALS: BP 152/85; PULSE 64; RESP 18; O2SAT 98
[2024-07-04 11:01] LABS: Bilirubin Urine Negative (Negative); Blood Urine Negative (Negative); Glucose Urine UA Negative (Normal); Ketones Urine Negative (Negative); Leukocyte Esterase Urine Negative (Negative); Nitrate Urine Negative (Negative); Protein Urine Negative (Negative); Specific Gravity, Urine 1.012 (1.005-1.030); Urine Appearance Clear (CLEAR); Urine Color Yellow (Yellow)
[2024-07-04 11:08] LABS: Alanine Aminotransferase 13 U/L (0-41); Albumin Level 3.8 g/dL (3.5-5.2); Alkaline Phosphatase 124 U/L (40-130); Anion Gap 13.4 (5-19); Aspartate Amino Transferase 18 U/L (0-40); Blood Urea Nitrogen 16 mg/dL (8-23); Calcium 8.6 mg/dL (8.5-10.5); Carbon Dioxide 24 mmol/L (22-29); Chloride 108 mmol/L (98-107); Creatinine Clr Calc Pharmacy 55.2676; Globulin 2.6 g/dL (1.3-4.6); Glucose 96 mg/dL (65-115); Osmolality Calculated 293 mOsm/kg (285-295); Potassium 4.4 mmol/L (3.5-5.1); Sodium 141 mmol/L (136-145); Total Bilirubin 0.4 mg/dL (0.15-1.2); Total Protein 6.4 g/dL (6.6-8.7)
[2024-07-04 11:13] LABS: Add Urine Culture? No; Charge for UA Resulting for Rev
[2024-07-04 12:09] VITALS: BP 149/84; PULSE 62; O2SAT 99
== END 2024-07-04 12:11 | disposition home or self-care (01) ==
PROVIDERS: Emergency Provider Physician Assistant; PCP Family Medicine
DX: R26.89 Other abnormalities of gait and mobility (principal); W19.XXXA Unspecified fall, initial encounter; G31.83 Neurocognitive disorder with Lewy bodies; F17.210 Nicotine dependence, cigarettes, uncomplicated; J44.9 Chronic obstructive pulmonary disease, unspecified; K44.9 Diaphragmatic hernia without obstruction or gangrene
CPT/HCPCS: 36415; 70450; 71045; 72125; 80053; 81003; 85025; 93005; 99285

== ENCOUNTER 2024-09-12 09:28 | Outpatient (CLI) | payer MEDICARE, MEDICAID, SELFPAY ==
--- NOTE | 2024-09-12 09:30 | CT_ITS ---
WS: [id number] CT chest wo con [id number] HISTORY: R91.1 - Solitary pulmonary nodule TECHNIQUE: Axial imaging performed through the thorax. Coronal and sagittal reformats are submitted. All CT scans at [facility] use at least one of these dose optimization techniques: automated exposure control; mA and/or kV adjustment per patient size (includes targeted exams where dose is matched to clinical indication); or iterative reconstruction. CONTRAST: None DLP: 262.15 mGy.cm COMPARISON: 05/20/2023, 05/25/2024, 04/16/2022, 05/27/2022 Lungs and central airway: Hyperinflated lungs with centrilobular emphysema. Improvement in the multifocal opacifications at the RIGHT lung base since 05/25/2024. The RIGHT basilar pulmonary nodule is reidentified measuring 12.5 mm. Very slight increase in size over several prior examinations. There is also significant motion artifact from breathing which may exaggerate the measurements of the nodule. No additional nodule or mass identified. Stable pleural-based nodule anteriorly in the LEFT upper lobe. Pleura: Normal. No pleural effusion. Heart and pericardium: Heart is being displaced by the intrathoracic stomach. Mediastinum and marshall: It would be difficult to exclude adenopathy on this examination due to breathing motion artifact and no contrast. Vessels: Moderate atherosclerosis aorta. Ectatic aorta. Chest wall and lower neck: No soft tissue masses. Upper abdomen: Intrathoracic stomach. There is an air-fluid level within the stomach but there is also an air-fluid level below the diaphragm. May be due to recent ingestion of food and air. No obstructive pattern. No adrenal mass. Osseous structures: Mild increase in thoracic kyphosis. CT/CT chest wo con [id number] IMPRESSION: 1. Reidentified is a 12.5 mm nodule at the RIGHT lung base which is minimally increased in size as compared to 05/20/2023. Recommend continued serial CT evalu ation follow-up or PET/CT imaging. 2. Study is compromised by breathing motion artifact. 3. Chronic emphysema. 4. Intrathoracic stomach with no obstruction. 5. Improved multifocal opacifications at the RIGHT lung base as described on
== END 2024-09-12 09:29 | disposition home or self-care (01) ==
PROVIDERS: PCP Family Medicine; Visit Provider Family Medicine
DX: R91.1 Solitary pulmonary nodule (principal); J18.9 Pneumonia, unspecified organism; R91.8 Other nonspecific abnormal finding of lung field; J43.8 Other emphysema; R93.89 Abnormal findings on diagnostic imaging of other specified body structures; I70.0 Atherosclerosis of aorta; I77.819 Aortic ectasia, unspecified site; M40.294 Other kyphosis, thoracic region
CPT/HCPCS: 71250

== ENCOUNTER 2024-10-26 10:03 | Emergency (ER) | payer MEDICARE, MEDICAID, SELFPAY ==
[2024-10-26 10:08] VITALS: BP 137/79; PULSE 78; RESP 18; TEMP 36.3; O2SAT 91
--- NOTE | 2024-10-26 10:22 | ECG_ITS ---
[facility] 2024-[facility]26 Pat Name: Erlin Yadav Department: Room: Gender: Male Manager Telemetry: : 1950 Requested By: Jordan Orta Order Number: [id number] Jody MD: Devaughn Huddleston M.D. Measurements Intervals [place] Rate: 79 P: 130 MT: 215 QRS: 206 QRSD: 110 T: 99 QT: 397 QTc: 456 Interpretive Statements Sinus rhythm with 1st degree AV block INCOMPLETE RIGHT BUNDLE BRANCH BLOCK SEPTAL MYOCARDIAL INFARCTION , PROBABLY OLD [40+ ms Q WAVE IN V1/V2] Compared to ECG 07/04/2024 10:05:06 Incomplete right bundle-branch block now present Myocardial infarct finding now present Electronically Signed On 10-26-2024 14:00:05 CDT by Devaughn Huddleston M.D. [id number]
--- NOTE | 2024-10-26 10:22 | XR_ITS ---
WS: [id number] Portable AP upright chest, 10/26/2024 Clinical Data: sob Comparison: Portable chest, 07/04/2024 Findings: There are bibasilar opacities unchanged. There is a large hiatal hernia behind the heart. No nodules, masses or effusions are seen. The heart is normal. The pulmonary vascularity is not increased. No pneumonia or pneumothorax is seen. The aortic arch and descending thoracic aorta show tortuosity. There is a dextroscoliosis of the thoracic spine. XR/XR chest 1V portable [id number] Impression: 1. No change in bibasilar pulmonary opacities which may represent atelectasis, pulmonary vascular congestion and/or pneumonia. 2. Large hiatal hernia. 3. Atherosclerosis.
[2024-10-26 10:54] LABS: Basophils % 0.7 %; Eosinophils % 0.2 %; Lymphocytes # 0.9 10^3/uL (0.8-4.8); Lymphocytes % 16.3 %; Mean Corpuscular HGB Conc 32.6 g/dL (30-55); Mean Corpuscular Volume 98.2 fl (82-101); Mean Platelet Volume 8.4 fL (7.4-10.4); Monocytes # 0.4 10^3/uL (0.2-0.9); Neutrophils # 4.11 10^3/uL (1.8-7.7); Neutrophils % 74.6 %; Nucleated Red Blood Cells % 0 %; Platelet Count 246 10^3/cmm (157-399); Red Blood Count 3.97 10^6/uL (3.85-5.65); White Blood Count 5.51 10^3/uL (3.29-11.43)
[2024-10-26 11:09] LABS: Alanine Aminotransferase 12 U/L (0-41); Albumin Level 3.6 g/dL (3.5-5.2); Alkaline Phosphatase 118 U/L (40-130); Anion Gap 13.1 (5-19); Aspartate Amino Transferase 14 U/L (0-40); Blood Urea Nitrogen 13 mg/dL (8-23); Calcium 8.8 mg/dL (8.5-10.5); Carbon Dioxide 25 mmol/L (22-29); Chloride 104 mmol/L (98-107); Creatinine Clr Calc Pharmacy 56.4471; Globulin 2.9 g/dL (1.3-4.6); Glucose 112 mg/dL (65-115); Osmolality Calculated 287 mOsm/kg (285-295); Potassium 4.1 mmol/L (3.5-5.1); Sodium 138 mmol/L (136-145); Total Bilirubin 0.4 mg/dL (0.15-1.2); Total Protein 6.5 g/dL (6.6-8.7)
[2024-10-26 11:18] VITALS: BP 141/84; PULSE 65; RESP 16; O2SAT 94
--- NOTE | 2024-10-26 11:19 | ED_ITS ---
HPI - SOB/Dyspnea 2 General: Chief Complaint: Shortness of Breath/Dyspnea Stated Complaint: sob,low o2 Time Seen by Provider: 10/26/24 11:11 History of Present Illness: HPI Narrative: 74-year-old male presents with cough, co ngestion, some mild wheezing this been going on for about 4 5 days. They reports that [facility] a [facility] and that his oxygen was 77% at the [facility]. Upon arrival he is O2 saturations in mid 90s on room air. They report he received a breathing treatment just prior to arrival. Associated symptoms: Reports chest congestion; Deny chest pain, fever(s), nausea, palpitations or vomiting Related Data Home Medications ?Medication ?Instructions ?Recorded ?Confirmed cetirizine 10 mg tablet 10 mg PO DAILY 07/04/2410/08 Previous Rx's ?Medication ?Instructions ?Recorded lithium carbonate 300 mg capsule 300 mg PO BID #60 cap s 04/13/24 quetiapine 400 mg tablet See Rx Instructions .Route 0 05/18/24 .COMPLEX #60 tabs tamsulosin 0.4 mg capsule See Rx Instructions .Route 0 05/31/24 .COMPLEX #30 caps trazodone 100 mg tablet See Rx Instructions .Route 0 05/31/24 .COMPLEX #30 tabs olanzapine 10 mg tablet See Rx Instructions .Route 0 06/20/24 .COMPLEX #90 tabs olanzapine 2.5 mg tablet See Rx Instructions .Route 0 06/20/24 .COMPLEX #90 tabs venlafaxine 150 mg 150 mg PO QAM #30 caps 06/21 capsule,extended release 24 hr venlafaxine 75 mg capsule,extended See Rx Instructions .Route 06/21/24 release 24 hr .COMPLEX #30 caps lorazepam 1 mg tablet 1 mg PO Q12H PRN agitation # 30 tabs 06/29/24 acetaminophen 500 mg tablet See Rx Instructions .Route 07/03/24 .COMPLEX #120 tabs ibuprofen 800 mg tablet See Rx Instructions .Route 0 07/03/24 .COMPLEX #90 tabs omeprazole 20 mg capsule,delayed See Rx Instructions . Route 07/10/24 release .COMPLEX #60 caps docusate sodium 100 mg capsule 100 mg PO BID #60 caps 07/11/24 ipratropium 0.5 mg-albuterol 3 mg 3 ml inhalation TID #180 mL 07/19/24 (2.5 mg base)/3 mL nebulization soln galantamine 4 mg tablet See Rx Instructions .Route 0 09/08/24 .COMPLEX #60 tabs Cerave Moisturizing Cream #1 ea 09/20/24 ketoconazole 2 % shampoo See Rx Instructions .Route 0 09/20/24 .COMPLEX #120 mL quetiapine 100 mg tablet See Rx Instructions .Route 0 10/03/24 .COMPLEX #30 tabs multivitamin with folic acid 400 1 tab PO DAILY #30 ta bs 10/24/24 mcg tablet (Tab-A-Carlos) triamcinolone acetonide 0.025 % 1 applic topical QAM # 80 grams 10/24/24 topical cream alprazolam 1 mg tablet See Rx Instructions .Route 0 10/25/24 .COMPLEX #60 tabs guaifenesin 1,200 mg tablet, 1,200 mg PO BID PRN conge stion #60 10/25/24 extended release 12 hr (Mucinex) tabs doxycycline hyclate 100 mg capsule 100 mg PO BID 7 day s #14 caps 10/26/24 guaifenesin 1,200 mg tablet, 1,200 mg PO BID PRN conge stion #30 10/26/24 extended release 12 hr tabs prednisone 20 mg tablet 40 mg (2 x 20 mg) PO DAILY 3 days 10/26/24 #6 tabs Allergies Allergy/AdvReac Type Severity Reaction Status Date / Time azithromycin Allergy Unknown Unknown Verified 07/04/24 09:36 Macrolide Antibiotics Allergy Unknown Verified 07/04/24 09:36 Review of Systems 2 Const: Denies: fever(s) or chills Card: Denies: chest pain or palpitations Resp: Reports: dyspnea, productive cough, wheezing and chest congestion GI: Denies: nausea or vomiting Neuro: Denies: headache(s) PFSH ED 2 PFSH: Medical History Dementia COPD (chronic obstructive pulmonary disease) GERD (gastroesophageal reflux disease) Schizo affective schizophrenia Surgical History History of hip surgery Social History Smoking and tobacco/nicotine status: current every day tobacco/nicotine user (5-10 cigarettes) cigarettes Packs smoked per day: 1 Years cigarettes smoked: 61 [ Other cigarette details: 10-12 cigarettes per day] Alcohol intake: former Physical Exam 2 Const: GENERAL APPEARANCE: frail appearing Resp: COMMON NORMALS: normal respiratory effort AUSCULTATION: diminished lung sounds (Mild) Cardio: COMMON NORMALS: regular rate and regular rhythm RATE: regular rate RHYTHM: regular rhythm GI: COMMON NORMALS: Soft to palpation and non-tender PALPATION: Yes Soft to palpation Neuro: OTHER: At baseline Course 2 Vital Signs: Vital signs: Vital Signs Temperature 97.4 F L 10/26/24 10:08 Pulse Rate 63 10/26/24 11:39 Respiratory Rate 16 10/26/24 11:39 Blood Pressure 141/84 10/26/24 11:18 Pulse Oximetry 94 10/26/24 11:39 Oxygen Delivery Me thod Room Air 10/26/24 11:39 MDM - SOB/Dyspnea Medical Decision Making Patient's diagnostic studies were reviewed and showed no acute findings on labs. His x-ray is similar to previous x-ray. EKG shows no acute changes with heart rate 79, sinus with a first-degree block, occasional PVC, IA 215, QTc 397, no acute ST changes or elevation noted. Patient's O2 stayed in the mid upper 90s throughout his stay. Patient will be discharged on doxycycline, steroids and some guaifenesin. Patient was stable and discharged home. Lab Data 10/26/24 10:39 10/26/24 10:39 Labs/Radiology: Radiology Impressions Chest X-Ray 10/26/24 10:22 Impression: 1. No change in bibasilar pulmonary opacities which may represent atelectasis, pulmonary vascular congestion and/or pneumonia. 2. Large hiatal hernia. 3. Atherosclerosis. Laboratory Results WBC 5.51 10^3/uL (3.29-11.43) 10/26/24 10:39 RBC 3.97 10^6/uL (3.85-5.65) 10/26/24 10:39 Hgb 12.70 g/dL (11.27-16.99) 10/26/24 10:39 Hct 39.0 % (37-53) 10/26/24 10:39 MCV 98.2 fl (82-101) 10/26/24 10:39 MCH 32.0 pg (27-33) 10/26/24 10:39 MCHC 32.6 g/dL (30-55) 10/26/24 10:39 RDW 15.0 % (12.1-15.1) 10/26/24 10:39 Plt Count 246 10^3/cmm (157-399) 10/26/24 10:39 MPV 8.4 fL (7.4-10.4) 10/26/24 10:39 Neut % (Auto) 74.6 % 10/26/24 10:39 Lymph % (Auto) 16.3 % 10/26/24 10:39 [place] % (Auto) 8.0 % 10/26/24 10:39 Eos % (Auto) 0.2 % 10/26/24 10:39 Baso % (Auto) 0.7 % 10/26/24 10:39 Neut # (Auto) 4.11 10^3/uL (1.8-7.7) 10/26/24 10:39 Lymph # (Auto) 0.9 10^3/uL (0.8-4.8) 10/26/24 10:39 [place] # (Auto) 0.4 10^3/uL (0.2-0.9) 10/26/24 10:39 Eos # (Auto) 0.0 10^3/uL (0.0-0.8) 10/26/24 10:39 Baso # (Auto) 0.0 10^3/uL (0.0-0.1) 10/26/24 10:39 Nucleated RBC % (auto) 0 % 10/26/24 10:39 Nucleated RBCs # 0.0 /100WBC 10/26/24 10:39 Sodium 138 mmol/L (136-145) 10/26/24 10:39 Potassium 4.1 mmol/L (3.5-5.1) 10/26/24 10:39 Chloride 104 mmol/L (98-107) 10/26/24 10:39 Carbon Dioxide 25 mmol/L (22-29) 10/26/24 10:39 Anion Gap 13.1 (5-19) 10/26/24 10:39 BUN 13 mg/dL (8-23) 10/26/24 10:39 Creatinine 1.0 mg/dL (0.7-1.2) 10/26/24 10:39 GFR Calculation Not Reportable 10/26/24 10:39 Glucose 112 mg/dL (65-115) 10/26/24 10:39 Calculated Osmolality 287 mOsm/kg (285-295) 10/26/24 10:39 Calcium 8.8 mg/dL (8.5-10.5) 10/26/24 10:39 Total Bilirubin 0.4 mg/dL (0.15-1.2) 10/26/24 10:39 AST 14 U/L (0-40) 10/26/24 10:39 ALT 12 U/L (0-41) 10/26/24 10:39 Alkaline Phosphatase 118 U/L (40-130) 10/26/24 10:39 Total Protein 6.5 g/dL (6.6-8.7) L 10/26/24 10:39 Albumin 3.6 g/dL (3.5-5.2) 10/26/24 10:39 Globulin 2.9 g/dL (1.3-4.6) 10/26/24 10:39 Urine Color Yellow (Yellow) 10/26/24 11:25 Urine Appearance Clear (CLEAR) 10/26/24 11:25 Urine pH 7.0 (5-7) 10/26/24 11:25 Ur Specific [place] 1.009 (1.005-1.030) 10/26/24 11:25 Urine Protein Negative (Negative) 10/26/24 11:25 Urine Glucose (UA) Negative (Normal) 10/26/24 11:25 Urine Ketones Negative (Negative) 10/26/24 11:25 Urine Blood Negative (Negative) 10/26/24 11:25 Urine Nitrate Negative (Negative) 10/26/24 11:25 Urine Bilirubin Negative (Negative) 10/26/24 11:25 Urine Urobilinogen 1.0 mg/dL (Negative) 10/26/24 11:25 Ur Leukocyte Esterase Negative (Negative) 10/26/24 11:25 Urine RBC 0-2 /hpf (0-2) 10/26/24 11:25 Urine WBC 0-5 /hpf (0-5) 10/26/24 11:25 Ur Squamous Epith Cells 0-5 /hpf (0-5) 10/26/24 11:25 Amorphous Sediment Not Reportable 10/26/24 11:25 Urine Bacteria None seen /hpf (NONE) 10/26/24 11:25 Hyaline Casts 0-4 /lpf H 10/26/24 11:25 All radiology interpretation(s) finalized by discharge Discharge Plan Discharge Patient Disposition: Home Clinical Impression: Emphysema/COPD, Chest congestion Condition: Stable Prescriptions: New doxycycline hyclate 100 mg capsule 100 mg PO BID 7 Days Qty: 14 0RF prednisone 20 mg tablet 40 mg PO DAILY 3 Days Qty: 6 0RF guaifenesin 1,200 mg tablet extended release 12hr 1,200 mg PO BID PRN (Reason: congestion) Qty: 30 0RF No Action lithium carbonate 300 mg capsule 300 mg PO BID Qty: 60 5RF quetiapine 400 mg tablet See Rx Instructions .ROUTE .COMPLEX Qty: 60 3RF Dose Instruction: TAKE ONE TABLET BY MOUTH TWICE DAILY FOR bipolar disorder Rx Instructions: TAKE ONE TABLET BY MOUTH every evening FOR bipolar disorder trazodone 100 mg tablet See Rx Instructions .ROUTE .COMPLEX Qty: 30 11RF Dose Instruction: TAKE ONE TABLET BY MOUTH EVERY NIGHT AT BEDTIME FOR insomnia Rx Instructions: TAKE ONE TABLET BY MOUTH EVERY NIGHT AT BEDTIME FOR insomnia tamsulosin 0.4 mg capsule See Rx Instructions .ROUTE .COMPLEX Qty: 30 11RF Dose Instruction: TAKE ONE CAPSULE BY MOUTH EVERY NIGHT AT BEDTIME FOR urinary retention Rx Instructions: TAKE ONE CAPSULE BY MOUTH EVERY NIGHT AT BEDTIME FOR urinary retention olanzapine 10 mg tablet See Rx Instructions .ROUTE .COMPLEX Qty: 90 3RF Dose Instruction: TAKE ONE TABLET BY MOUTH EVERY NIGHT AT BEDTIME; FOR BIPOLAR DISORDER Rx Instructions: TAKE ONE TABLET BY MOUTH EVERY NIGHT AT BEDTIME; FOR BIPOLAR DISORDER olanzapine 2.5 mg tablet See Rx Instructions .ROUTE .COMPLEX Qty: 90 3RF Dose Instruction: TAKE ONE TABLET BY MOUTH EVERY DAY in THE morning FOR bipolar disorder Rx Instructions: TAKE ONE TABLET BY MOUTH EVERY DAY in THE morning FOR bipolar disorder venlafaxine 150 mg capsule,extended release 24hr 150 mg PO QAM Qty: 30 5RF Rx Instructions: ALONG WITH 75MG TO = 225MG venlafaxine 75 mg capsule,extended release 24hr See Rx Instructions .ROUTE .COMPLEX Qty: 30 2RF Dose Instruction: TAKE ONE CAPSULE BY MOUTH EVERY DAY with 150mg TO = 225mg; FOR BIPOLAR DISORDER Rx Instructions: TAKE ONE CAPSULE BY MOUTH EVERY DAY with 150mg TO = 225mg; FOR BIPOLAR DISORDER lorazepam 1 mg tablet 1 mg PO Q12H PRN (Reason: agitation) Qty: 30 1RF ibuprofen 800 mg tablet See Rx Instructions .ROUTE .COMPLEX Qty: 90 5RF Dose Instruction: TAKE 1 TABLET BY MOUTH EVERY 8 HOURS NEEDED FOR PAIN OR ELEVATED FOR HIGH TEMPERATURE > 100.4F DO NOT EXCEED 3 TABS/24 HOURS Rx Instructions: TAKE 1 TABLET BY MOUTH EVERY 8 HOURS NEEDED FOR PAIN OR ELEVATED FOR HIGH TEMPERATURE > 100.4F DO NOT EXCEED 3 TABS/24 HOURS acetaminophen 500 mg tablet See Rx Instructions .ROUTE .COMPLEX Qty: 120 5RF Dose Instruction: TAKE TWO TABLETS BY MOUTH EVERY 4 HOURS NEEDED FOR PAIN /FEVER > 100.4 DO NOT EXCEED 8 TABS/24 HOURS Rx Instructions: TAKE TWO TABLETS BY MOUTH EVERY 4 HOURS NEEDED FOR PAIN /FEVER > 100.4 DO NOT EXCEED 8 TABS/24 HOURS omeprazole 20 mg capsule,delayed release(DR/EC) See Rx Instructions .ROUTE .COMPLEX Qty: 60 6RF Dose Instruction: TAKE ONE CAPSULE BY MOUTH TWICE DAILY FOR GERD Rx Instructions: TAKE ONE CAPSULE BY MOUTH TWICE DAILY FOR GERD docusate sodium 100 mg capsule 100 mg PO BID Qty: 60 5RF ipratropium-albuterol 0.5 mg-3 mg(2.5 mg base)/3 mL solution for nebulization 3 ml inhalation TID Qty: 180 6RF galantamine 4 mg tablet See Rx Instructions .ROUTE .COMPLEX Qty: 60 5RF Dose Instruction: TAKE ONE TABLET BY MOUTH TWICE DAILY WITH MORNING AND EVENING MEALS FOR DEMENTIA Rx Instructions: TAKE ONE TABLET BY MOUTH TWICE DAILY WITH MORNING AND EVENING MEALS FOR DEMENTIA ketoconazole 2 % shampoo See Rx Instructions .ROUTE .COMPLEX Qty: 120 5RF Dose Instruction: USE THREE times PER WEEK Rx Instructions: USE THREE times PER WEEK (DME) Cerave Moisturizing Cream 453 gm cream See Rx Instructions .Route .MEDSUPPLY Qty: 1 5RF Dose Instruction: APPLY TO HANDS AND FEET TWICE DAILY AND NEEDED FOR DRY SKIN Rx Instructions: APPLY TO HANDS/FEET TWICE DAILY AND NEEDED FOR DRY SKIN, not to exceed 3 doses daily quetiapine 100 mg tablet See Rx Instructions .ROUTE .COMPLEX Qty: 30 5RF Dose Instruction: TAKE ONE TABLET BY MOUTH EVERY DAY FOR BIOPOLAR Rx Instructions: TAKE ONE TABLET BY MOUTH EVERY DAY FOR BIOPOLAR multivitamin with folic acid [Tab-A-Carlos] 400 mcg tablet 1 tab PO DAILY Qty: 30 5RF triamcinolone acetonide 0.025 % cream 1 applic TOPICAL QAM Qty: 80 2RF Rx Instructions: Apply small amount to affected area once daily. Use one week, then off one week. guaifenesin [Mucinex] 1,200 mg tablet extended release 12hr 1,200 mg PO BID PRN (Reason: congestion) Qty: 60 2RF alprazolam 1 mg tablet See Rx Instructions .ROUTE .COMPLEX Qty: 60 5RF Rx Instructions: TAKE ONE-HALF TABLET BY MOUTH IN THE AM AND 1 TABLET IN THE EVENING. cetirizine 10 mg Tablet 10 mg PO DAILY Discharge Orders: Discharge ED (Routine); Ordered 10/26/24 Ordered By: Jordan Orta Referrals: Alexander Perez DO [Primary Care Provider, Family Practice] Discharge Diet: Usual diet Discharge Activity: Increase activity as tolerated Patient Instructions: Guaifenesin (By mouth), COPD - Emphysema, Opioid Safety, Pain Management Activity Restrictions/Additional Instructions: Please start the doxycycline today. You may start the steroid tomorrow as you were given some through the IV. Please follow-up with your primary care provider in a couple days for recheck. Recommend use your breathing treatments every 4-6 hours while awake for the next 24 hours then as needed. Print Language: Persian Coding Level of Care Code ED Paper Gluing Operator for Leodan Taveras
[2024-10-26] MEDS: methylPREDNISolone sod succ 125 mg/2 mL INJ 80 MG IV (11:30)
[2024-10-26 11:36] LABS: Bilirubin Urine Negative (Negative); Blood Urine Negative (Negative); Glucose Urine UA Negative (Normal); Ketones Urine Negative (Negative); Leukocyte Esterase Urine Negative (Negative); Nitrate Urine Negative (Negative); Protein Urine Negative (Negative); Specific Gravity, Urine 1.009 (1.005-1.030); Urine Appearance Clear (CLEAR); Urine Color Yellow (Yellow)
[2024-10-26 11:38] LABS: Add Urine Microscopic? YES; Bacteria Urine None Seen /hpf; Hyaline Casts Urine 0-4 /lpf; RBC Urine 0-2 /hpf (0-2); Squamous Epithelial Cell Urine 0-5 /hpf (0-5); WBC Urine 0-5 /hpf (0-5)
[2024-10-26 11:39] VITALS: PULSE 63; RESP 16; O2SAT 94
[2024-10-26 11:39] LABS: Add Urine Culture? No
[2024-10-26] MEDS: ipratropium-albuterol 3 mL Neb INHALATION (11:42)
[2024-10-26 12:08] VITALS: BP 141/84; PULSE 96; RESP 16; O2SAT 94
[2024-10-26 12:43] VITALS: BP 141/84; PULSE 60; RESP 16; O2SAT 93
== END 2024-10-26 12:44 | disposition home or self-care (01) ==
PROVIDERS: Emergency Provider Student in an Organized Health Care Education/Training Program; PCP Family Medicine
DX: J44.9 Chronic obstructive pulmonary disease, unspecified (principal); J43.9 Emphysema, unspecified; R09.89 Other specified symptoms and signs involving the circulatory and respiratory systems; F17.210 Nicotine dependence, cigarettes, uncomplicated
CPT/HCPCS: 36415; 71045; 80053; 81001; 85025; 93005; 94640; 96374; 99285; J2919; J9999

== ENCOUNTER → 2024-11-02 13:23 | Outpatient (BNVA) | payer MEDICARE, MEDICAID, SELFPAY | PROVIDERS: PCP Family Medicine; Visit Provider Nurse Practitioner Family | DX: L21.8 Other seborrheic dermatitis (principal); L82.1 Other seborrheic keratosis; D18.01 Hemangioma of skin and subcutaneous tissue; L57.8 Other skin changes due to chronic exposure to nonionizing radiation; X32.XXXA Exposure to sunlight, initial encounter; L81.4 Other melanin hyperpigmentation | CPT/HCPCS: 99204 ==

== ENCOUNTER → 2024-11-14 09:28 | Outpatient (BNVA) | payer MEDICARE, MEDICAID, SELFPAY | PROVIDERS: PCP Family Medicine; Visit Provider Specialist | DX: G31.83 Neurocognitive disorder with Lewy bodies (principal); F02.B18 Dementia in other diseases classified elsewhere, moderate, with other behavioral disturbance; R29.90 Unspecified symptoms and signs involving the nervous system; F31.31 Bipolar disorder, current episode depressed, mild; R26.9 Unspecified abnormalities of gait and mobility | CPT/HCPCS: 99214 ==

== ENCOUNTER → 2025-01-02 13:34 | Outpatient (BNVA) | payer MEDICARE, MEDICAID, SELFPAY | PROVIDERS: PCP Family Medicine; Visit Provider Nurse Practitioner Family | DX: L21.8 Other seborrheic dermatitis (principal); L82.1 Other seborrheic keratosis; L57.8 Other skin changes due to chronic exposure to nonionizing radiation; X32.XXXA Exposure to sunlight, initial encounter; L81.4 Other melanin hyperpigmentation | CPT/HCPCS: 99214 ==

== ENCOUNTER 2025-04-12 12:17 | Outpatient (CLI) | payer MEDICARE, MEDICAID, SELFPAY ==
[2025-04-12 12:21] VITALS: BP 120/84; PULSE 70; RESP 18; TEMP 36.6; O2SAT 99; BMI 18.7
--- NOTE | 2025-04-12 12:26 | PC.NURSE ---
pt is unable to answer SI questions d/t dementia
--- NOTE | 2025-04-12 12:53 | XR_ITS ---
WS: [id number] Exam: XR chest 2V* [id number] Date/Time of Exam: 04/12/2025 12:55 PM Reason For Exam: copd and low O2 levels. had aspiration/choking 2 weeks ago Comparison 10/26/2024. There are patchy infiltrates in the mid and lower RIGHT lung suspicious for pneumonia. The LEFT lung is generally clear. Large hiatal hernia containing stomach and bowel noted. Heart size top limits normal. No pleural effusion. Bony structures are intact as visualized. The mediastinum is stable in appearance. XR/XR chest 2V* [id number] IMPRESSION: 1. Patchy infiltrates in the mid and lower RIGHT lung suspicious for pneumonia. 2. Large hiatal hernia.
== END 2025-04-12 12:48 | disposition home or self-care (01) ==
PROVIDERS: PCP Family Medicine; Visit Provider Emergency Medicine
DX: R06.02 Shortness of breath (principal); K44.9 Diaphragmatic hernia without obstruction or gangrene; R91.8 Other nonspecific abnormal finding of lung field
CPT/HCPCS: 71046